=== PATIENT | male | born 1940 | race Caucasian/White ===

== ENCOUNTER 2016-12-21 06:09 | Observation (INO) | payer MEDICARE, OTHER ==
[~2016-12-21] VITALS: Ht 167.6 cm; Wt 92.2 kg
[2016-12-21] VITALS (7 sets, daily range): BP systolic 127–167; BP diastolic 66–79; PULSE 63–89; RESP 19–20; TEMP 98.6; Ht 167.6 cm; Wt 92.2 kg
[~2016-12-21 06:09] MED LIST: ACET500T98 PO; AMLO-147 PO; ASPI-664 PO; CARV6.25 PO; CLON-379 PO; DOCU-159 PO; FERR-55 PO; GABA300C16 PO; GEMF600T60 PO; HYDR10TA36 PO; LEVO75TA5 PO; LORA10TA3 PO; ORPH100T PO; SODI650T PO
[2016-12-21] MEDS ORDERED: ASPIRIN 81 MG TAB PO STA (06:41)
[2016-12-21] MEDS ORDERED: NITROGLYCERIN 2% 1 GM OINT PKT TD STA (06:41)
[2016-12-21] MEDS ORDERED: NITROGLYCERIN (SL) 0.4 MG TAB SL PRN ×2 (07:00→08:30)
[2016-12-21 07:38] LABS: BASOPHILS % 0.3 % (0.0-2.0); EOSINOPHILS # 0.1 10^3/ul (0.0-0.5); HEMATOCRIT 42.5 % (42.0-52.0); HEMOGLOBIN 14.2 g/dl (14.0-18.0); LYMPHOCYTES # 1.3 10^3/ul (0.8-2.9); LYMPHOCYTES % 21.7 % (15.0-51.0); MEAN CORPUSCULAR HEMOGLOBIN 28.4 pg (29.0-33.0); MEAN CORPUSCULAR HGB CONC 33.4 g/dl (32.0-37.0); MEAN CORPUSCULAR VOLUME 85.2 fl (82.0-101.0); MEAN PLATELET VOLUME 8.8 fl (7.4-10.4); MONOCYTE # 0.4 10^3/ul (0.3-0.9); MONOCYTES % 6.1 % (0.0-11.0); NEUTROPHIL # 4.1 10^3/ul (1.6-7.5); NEUTROPHILS % 69.9 % (39.0-77.0); PLATELET COUNT 126 10^3/UL (140-440); RED BLOOD COUNT 4.98 10^6/ul (4.70-6.10); RED CELL DISTRIBUTION WIDTH 15.5 % (11.5-14.5); UNCORRECTED WBC 5.9 10^3/ul (4.8-10.8); WHITE BLOOD COUNT 5.9 10^3/ul (4.8-10.8)
[2016-12-21 07:40] LABS: INR 1.01; PROTIME 13.3 Sec (12.2-14.2)
[2016-12-21 07:41] LABS: PARTIAL THROMBOPLASTIN TIME 29.5 Sec (25.0-35.0)
[2016-12-21 07:42] LABS: CONDITION 1; LH ANALYZER COMMENTS 1
[2016-12-21 07:50] LABS: CREATININE 4.21 mg/dl (0.61-1.24)
[2016-12-21 07:51] LABS: CALCIUM 9.3 mg/dl (8.4-10.2)
[2016-12-21 08:00] LABS: TROPONIN-I 0.028 ng/ml (0.00-0.12)
--- NOTE | 2016-12-21 08:20 | RADRPT ---
PROCEDURE: XR Chest. CLINICAL INDICATION: Chest pain TECHNIQUE: Single frontal chest x-ray. COMPARISON: 09/05/2015 FINDINGS: No acute infiltrate, pleural effusion or pneumothorax is identified. There is stable mild cardiomeg cassy. Aortic atherosclerotic calcification is noted. The osseous structures are remarkable for dege nerative spondylosis of the spine. IMPRESSION: 1. Stable mild cardiomegaly and aortic atherosclerosis. 2. No evidence of acute cardiopulmonary process. RPTAT: QQ .Kolby Dang MD, Date Time Electronically viewed and signed by .Kolby Dang MD, on 12/21/2016 08:20 .R/
[2016-12-21] MEDS ORDERED: DOCUSATE SODIUM 100 MG CAP PO PRN (08:30)
[2016-12-21] MEDS ORDERED: ACETAMINOPHEN 325 MG TAB PO PRN ×2 (08:30)
[2016-12-21] MEDS ORDERED: morphine 2 MG INJ IV PRN (08:30)
[2016-12-21] MEDS ORDERED: LORAZEPAM 2 MG INJ IV PRN (08:30)
[2016-12-21] MEDS ORDERED: NACL 0.9% 3 ML SYG IV SCH (08:30)
[2016-12-21] MEDS ORDERED: ONDANSETRON 4 MG INJ IV PRN ×2 (08:30)
--- NOTE | 2016-12-21 09:18 | ERA ---
ER Documentation Chief Complaint Date/Time DATE: 12/21/16 TIME: 09:14 Chief Complaint palpitation HPI Patient is a 76-year-old male with CAD and hypertension who presents with chest pain. He started with chest pain last night. The pain radiates into his back. It was worse in the back that started in his chest. He has had chest pain in the past. He denies shortness of breath. He says the pain is gone as of now. He said the back pain is still present. He has had no treatment as of yet. Upon review of old medical records this is the patient's third visit to the ER since 2014. ROS All systems reviewed and are negative except as per history of present illness. Medications Home Meds Active Scripts Acetaminophen (Tylenol) 500 Mg Tab, 500 MG PO Q6, #20 TAB Prov:DANIEL NEWBERRY PA-C 06/22/16 Orphenadrine Citrate (Norflex) 100 Mg Tablet.sa, 100 MG PO BID for 3 Days, TAB.SA Prov:DANIEL NEWBERRY PA-C 06/22/16 Clonidine Hcl* (Clonidine Hcl*) 0.1 Mg Tab, 0.1 MG PO Q4H Y for sbp>160, #40 TAB Prov:ARLENE SOLORIO 09/09/15 Hydralazine Hcl* (Apresoline*) 10 Mg Tab, 10 MG PO Q8 for 30 Days, TAB Prov:ARLENE SOLORIO 09/09/15 Sodium Bicarbonate* (Sodium Bicarbonate*) 650 Mg Tablet, 650 MG PO BID, #60 TAB Prov:AILIN GHOSH MD 09/09/15 Reported Medications Gemfibrozil* (Gemfibrozil*) 600 Mg Tablet, 600 MG PO QPM, TAB 09/05/15 Ferrous Sulfate* (Ferrous Sulfate*) 325 Mg Tablet, 325 MG PO DAILY, TAB 09/05/15 Docusate Sodium* (Docusate Sodium*) 100 Mg Capsule, 100 MG PO DAILY, CAP 09/05/15 Levothyroxine Sodium* (Levothyroxine Sodium*) 75 Mcg Tablet, 75 MCG PO AC BREAKFAST, TAB 09/05/15 Amlodipine Besylate* (Amlodipine Besylate*) 10 Mg Tablet, 10 MG PO DAILY, TAB 09/05/15 Carvedilol* (Coreg*) 6.25 Mg Tablet, 6.25 MG PO DAILY, TAB 09/05/15 Gabapentin* (Gabapentin*) 300 Mg Capsule, 300 MG PO BID, CAP 09/05/15 Aspirin* (Aspirin* EC) 81 Mg Tablet.dr, 81 MG PO DAILY, TAB 09/05/15 Loratadine* (Loratadine*) 10 Mg Tablet, 10 MG PO DAILY, TAB 09/05/15 Allergies Allergies: Coded Allergies: No Known Allergy (Unverified , 09/05/15) PMhx/Soc History of Surgery: No Anesthesia Reaction: No Hx Neurological Disorder: No Hx Respiratory Disorders: No Hx Cardiac Disorders: Yes (HTN; high cholesterol) Hx Psychiatric Problems: Yes (anxiety, depression) Hx Miscellaneous Medical Probl: Yes (thyroid disease) Hx Alcohol Use: No Hx Substance Use: No Hx Tobacco Use: No Smoking Status: Former smoker FmHx Family History: coronary disease Physical Exam Vitals Vital Signs Date Time Temp Pulse Resp B/P Pulse Ox O2 Delivery O2 Flow Rate FiO2 12/21/16 07:19 76 18 167/81 97 Room Air 12/21/16 06:23 97.3 74 20 189/84 96 Physical Exam Const: No acute distress Head: Atraumatic Eyes: Normal Conjunctiva ENT: Normal External Ears, Nose and Mouth. Neck: Full range of motion..~ No meningismus. Resp: Clear to auscultation bilaterally Cardio: Regular rate and rhythm, no murmurs Abd: Soft, non tender, non distended. Normal bowel sounds Skin: No petechiae or rashes Back: No midline or flank tenderness Ext: No cyanosis, or edema Neur: Awake and alert Psych: Normal Mood and Affect Result Diagram: 12/21/16 0700 12/21/16 0700 Results 24 hrs Laboratory Tests Test 12/21/16 07:00 Activated Partial Thromboplast Time 29.5Sec Anion Gap 22 Basophils # 0.010^3/ul Basophils % 0.3% Blood Morphology Comment Blood Urea Nitrogen 55mg/dl Calcium Level 9.3mg/dl Carbon Dioxide Level 26mmol/L Chloride Level 102mmol/L Creatinine 4.21mg/dl Eosinophils # 0.110^3/ul Eosinophils % 2.0% Glucose Level 116mg/dl Hematocrit 42.5% Hemoglobin 14.2g/dl INR International Normalized Ratio 1.01 Lymphocytes # 1.310^3/ul Lymphocytes % 21.7% Mean Corpuscular Hemoglobin 28.4pg Mean Corpuscular Hemoglobin Concent 33.4g/dl Mean Corpuscular Volume 85.2fl Mean Platelet Volume 8.8fl Monocytes # 0.410^3/ul Monocytes % 6.1% Neutrophils # 4.110^3/ul Neutrophils % 69.9% Nucleated Red Blood Cells # 0.010^3/ul Nucleated Red Blood Cells % 0.0/100WBC Platelet Count 84963^3/UL Potassium Level 4.0mmol/L Prothrombin Time 13.3Sec Prothrombin Time Ratio 1.0 Red Blood Count 4.9810^6/ul Red Cell Distribution Width 15.5% Sodium Level 146mmol/L Troponin I 0.028ng/ml White Blood Count 5.910^3/ul Current Medications Medications (Trade) Dose Ordered Sig/Jesús Route PRN Reason Start Time Stop Time Status Last Admin Dose Admin Aspirin (Aspirin) 162 mg ONCE STAT PO 12/21/16 06:41 12/21/16 06:42 DC 12/21/16 07:07 Nitroglycerin (Nitroglycerin 2% Oint) 1 inch ONCE STAT TD 12/21/16 06:41 12/21/16 06:42 DC 12/21/16 07:10 Nitroglycerin (Nitroglycerin (Sl Tab) 0.4 Mg) 1 tab Q5M UP TO 3 DOSES PRN SL CHEST PAIN 12/21/16 07:00 Ondansetron HCl (Zofran Inj) 4 mg ER BRIDGE PRN IV NAUSEA AND/OR VOMITING 12/21/16 08:30 12/22/16 08:29 Acetaminophen (Tylenol Tab) 650 mg ER BRIDGE PRN PO MILD PAIN/FEVER 12/21/16 08:30 12/22/16 08:29 IV Flush (NS 3 ml) 3 ml PER PROTOCOL IV 12/21/16 08:30 UNV Lorazepam (Ativan) 0.5 mg Q6H PRN IV ANXIETY 12/21/16 08:30 UNV Ondansetron HCl (Zofran Inj) 4 mg Q6H PRN IV NAUSEA AND/OR VOMITING 12/21/16 08:30 UNV Nitroglycerin (Nitroglycerin (Sl Tab) 0.4 Mg) 1 tab Q5M PRN SL CHEST PAIN 12/21/16 08:30 UNV Acetaminophen (Tylenol Tab) 650 mg Q6H PRN PO PAIN LEVEL 1-3 OR FEVER 12/21/16 08:30 UNV Morphine Sulfate (morphine) 2 mg Q4H PRN IV PAIN LEVEL 7-10 12/21/16 08:30 UNV Docusate Sodium (Colace) 100 mg Q12H PRN PO CONSTIPATION 12/21/16 08:30 UNV Famotidine (Pepcid) 20 mg Q12 PO 12/21/16 09:00 UNV Heparin Sodium (Porcine) (Heparin (5000 Units/0.5 ml)) 5,000 unit Q12 SC 12/21/16 09:00 UNV Insulin Aspart (Novolog Insulin Pen) NOVOLOG *MILD* ALGORITHM WITH MEALS BEDTIME SC 12/21/16 12:00 UNV Miscellaneous Information (* Miscellaneous Pharmacy Order) HYPOGLYCEMIA PROTOCOL w... ONCE ONCE XX 12/21/16 08:30 12/21/16 08:31 UNV Miscellaneous Information (* Miscellaneous Pharmacy Order) Discontinue Glyburide, Glipizide,... ONCE ONCE XX 12/21/16 08:30 12/21/16 08:31 UNV Miscellaneous Information (* Miscellaneous Pharmacy Order) Discontinue all previ... ONCE ONCE XX 12/21/16 08:30 12/21/16 08:31 UNV Amlodipine Besylate (Norvasc) 10 mg DAILY PO 12/21/16 09:00 UNV Aspirin (Halfprin) 81 mg DAILY PO 12/21/16 09:00 UNV Carvedilol (Coreg) 6.25 mg DAILY PO 12/21/16 09:00 UNV Clonidine (Catapres) 0.1 mg Q4H PRN PO sbp>160 12/21/16 08:30 UNV Docusate Sodium (Colace) 100 mg DAILY PO 12/21/16 09:00 UNV Ferrous Sulfate (Ferrous Sulfate (Ec)) 325 mg DAILY PO 12/21/16 09:00 UNV Gabapentin (Neurontin) 300 mg BID PO 12/21/16 09:00 UNV Hydralazine HCl (Apresoline) 10 mg Q8 PO 12/21/16 14:00 UNV Levothyroxine Sodium (Synthroid) 75 mcg AC BREAKFAST PO 12/22/16 07:00 UNV Loratadine (Claritin) 10 mg DAILY PO 12/21/16 09:00 UNV Sodium Bicarbonate (Sodium Bicarbonate Tab) 650 mg BID PO 12/21/16 09:00 UNV Procedures/MDM EKG read by me: Rate/Rhythm: Sinus rhythm at a rate of 73 Intervals: Normal Impression: Sinus rhythm with Q waves PROCEDURE: XR Chest. CLINICAL INDICATION: Chest pain TECHNIQUE: Single frontal chest x-ray. COMPARISON: 09/05/2015 FINDINGS: No acute infiltrate, pleural effusion or pneumothorax is identified. There is stable mild cardiomegaly. Aortic atherosclerotic calcification is noted. The osseous structures are remarkable for degenerative spondylosis of the spine. IMPRESSION: 1. Stable mild cardiomegaly and aortic atherosclerosis. 2. No evidence of acute cardiopulmonary process. RPTAT: QQ .Kolby Dang MD, MD Date Time Electronically viewed and signed by .Kolby Dang MD, MD on 12/21/2016 08: 20 Patient is a 76-year-old male with cardiac disease who presents with chest pain. He was given aspirin and nitroglycerin. EKG shows Q waves at this time. The patient has a second EKG pending. I am concerned for possible acute coronary syndrome. At this point I doubt pneumonia, pneumothorax, pulmonary embolism, or aortic dissection. The patient understands the plan and will be admitted to a telemetry bed. I spoke with Dr. Delgado from the panel team for admission as the patient's primary doctor does not admit to the hospital and he has Medicare insurance. Departure Diagnosis: Primary Impression: Chest pain Qualified Code: R07.9 - Chest pain, unspecified type Additional Impression: Palpitations Condition: EMILY Ma MD Dec 21, 2016 09:18
[2016-12-21 10:22] LABS: MAGNESIUM 1.7 mg/dl (1.7-2.5)
[2016-12-21 10:23] LABS: CHOL/HDL RATIO 4.3 RATIO
[2016-12-21 10:31] LABS: CK-MB 1.43 ng/ml (0.0-2.4)
[2016-12-21 10:32] LABS: ADD UMIC YES; URINE BILIRUBIN (Dip) NEGATIVE (NEGATIVE); URINE BLOOD (Dip) 1+ (NEGATIVE); URINE COLOR LT. YELLOW (YELLOW); URINE GLUCOSE (Dip) NEGATIVE (NEGATIVE); URINE KETONES (Dip) NEGATIVE (NEGATIVE); URINE LEUKOCYTE ESTERASE (Dip) NEGATIVE (NEGATIVE); URINE NITRITE (Dip) NEGATIVE (NEGATIVE); URINE TOTAL PROTEIN (Dip) 2+ (NEGATIVE); URINE UROBILINOGEN (Dip) 0.2 E.U./dL (0.1-1.0)
[2016-12-21 10:34] LABS: TROPONIN-I 0.032 ng/ml (0.00-0.12)
--- NOTE | 2016-12-21 10:47 | RADRPT ---
PROCEDURE: Retroperitoneal US. CLINICAL INDICATION: Renal insufficiency TECHNIQUE: Multiple sonographic images of the kidneys and retroperitoneum were obtained. The imag es were reviewed on a PACS workstation. COMPARISON: 09/05/15 FINDINGS: The kidneys are normal in size, contour, cortical thickness and cortical echogenicity. The right kidney measures 9.9 cm. The left kidney measures 10 cm. No kidney stones are visualized. There is no evidence for hydronephrosis. The urinary bladder is normal. RPTAT: AA IMPRESSION: Unremarkable retroperitoneal ultrasound. .Jose Antonio Alcazar MD, MD Date Time Electronically viewed and signed by .Jose Antonio Alcazar MD, MD on 12/21/2016 10:46 .S/
[2016-12-21 10:49] LABS: URINE RBCS 0-2 /HPF (0)
[2016-12-21 10:54] LABS: THYROID STIMULATING HORMONE 4.74 MIU/L (0.465-4.680)
[2016-12-21] MEDS ORDERED: hydrALAzine 20 MG INJ IV PRN (11:00)
[2016-12-21] MEDS ORDERED: AMLODIPINE 10 MG TAB PO SCH (11:00)
[2016-12-21] MEDS ORDERED: GLUCAGON 1 MG INJ IM PRN (11:00)
[2016-12-21] MEDS ORDERED: DEXTROSE 50% 50 ML SYRINGE IV PRN ×2 (11:00)
[2016-12-21] MEDS ORDERED: GLUCOSE GEL 15 GRAM TUBE PO PRN ×2 (11:00)
[2016-12-21] MEDS ORDERED: GLUCOSE GEL 15 GRAM TUBE BUCCAL PRN (11:00)
--- NOTE | 2016-12-21 11:52 | HP ---
DATE OF ADMISSION: 12/21/2016 TIME OF EVALUATION: 10:30 a.m. REASON FOR ADMISSION: Chest pain. CONSULTATIONS: 1. Dr. Neno English, Nephrology. 2. Dr. Juan Manuel Babcock, Cardiology. HISTORY OF PRESENT ILLNESS: This is a 76-year-old male with past medical history of essential hypertension, hyperlipidemia, CAD, chronic kidney disease stage IV and hypothyroidism who came to the emergency room with chief complaint of chest pain. The patient verbalized that the pain started last night. The patient verbalized the chest pain as substernal with radiation to the back. The patient denied any associated nausea, vomiting or diaphoresis. The patient denied any dyspnea. The patient was complaining of some headache. The patient denied any dizziness. The patient verbalized that he has been compliant with all his home medications. In the emergency room, the patient's initial set of troponins were negative. The patient's 12-lead EKG showed normal sinus rhythm with premature atrial complexes. The patient was noted to have elevated blood pressure with an initial blood pressure of 189/84 in the emergency room. The patient was treated with aspirin and nitroglycerin in the emergency room. PAST MEDICAL HISTORY: Essential hypertension, hyperlipidemia, CAD, chronic kidney disease stage IV, hypothyroidism. PAST SURGICAL HISTORY: Left heart catheterization. HOME MEDICATIONS: 1. Ferrous sulfate 325 mg p.o. daily. 2. Amlodipine 10 mg p.o. daily. 3. Coreg 6.25 mg p.o. daily. 4. Gemfibrozil 600 mg p.o. q.p.m. 5. Apresoline 10 mg p.o. q.8 h. 6. Aspirin 81 mg p.o. daily. 7. Gabapentin 300 mg p.o. b.i.d. 6. Synthroid 75 mcg p.o. before breakfast. ALLERGIES: NO KNOWN DRUG ALLERGIES. SOCIAL HISTORY: The patient lives at home. No recent history of tobacco, alcohol or illicit drug use. REVIEW OF SYSTEMS: A 12-point review of systems were negative other than what is mentioned in history of present illness. PHYSICAL EXAMINATION: VITAL SIGNS: Temperature 97.3, pulse rate 76, respiratory rate 18, blood pressure 167/81, oxygen saturation 97% on room air. GENERAL: This is an obese male lying in bed in no apparent distress. HEENT: Head normocephalic and atraumatic. Eyes: Anicteric sclerae. Conjunctivae clear. ENT: Nasal septum is midline. Oral mucosa is dry. NECK: Supple. No JVD noticed. RESPIRATORY: Bilaterally clear to auscultation. No adventitious breath sounds heard. No use of accessory muscles of respiration. CARDIAC: Regular rate and rhythm. No obvious murmurs heard. ABDOMEN: Distended, soft. Bowel sounds hypoactive in all 4 quadrants. GENITOURINARY: Deferred. EXTREMITIES: No cyanosis, no clubbing. Bilateral lower extremity 1+ pitting pedal edema. Peripheral pulses palpable. NEUROLOGIC: The patient is awake, alert and oriented. Cranial nerves are grossly intact. LABORATORY AND DIAGNOSTIC DATA: WBC 5.9, hemoglobin 14.0, hematocrit 42.5, platelet count 126. Sodium 146, potassium 4.0, chloride 102, carbon dioxide 26 , anion gap 22, BUN 55, creatinine 4.21, glucose 116, calcium 9.3. Creatinine kinase 274, troponin I 0.032, triglycerides 177, total cholesterol 171, LDL 97, HDL 39. Urinalysis: Urine nitrite negative, urine leukocyte esterase negative, urine total protein 2+. IMAGING: Chest x-ray: Stable mild cardiomegaly and aortic atherosclerosis. No evidence of acute cardiopulmonary process. Renal ultrasound: Unremarkable retroperitoneal ultrasound. 12-lead EKG: Sinus rhythm with premature atrial complexes. IMPRESSION: This is a 76-year-old male with multiple comorbidities who came to the emergency room with chief complaint of chest pain, who presented here for further treatment and evaluation. ASSESSMENT AND PLAN: 1. Chest pain. Total rule out acute coronary syndrome. The patient has multiple comorbidities including chronic kidney disease, essential hypertension , dyslipidemia and borderline diabetes. The patient also has a prior history of coronary artery disease. The patient will be continued on aspirin. Serial troponins will be obtained to evaluate for any underlying acute coronary syndrome. A 2D echocardiogram will be obtained to evaluate the left ventricular ejection fraction. A cardiology consult will be obtained. 2. Accelerated hypertension. The patient's home antihypertensives will be resumed. The patient will also be started on p.r.n. antihypertensives for any systolic blood pressure readings greater than 160 mmHg. 3. Chronic kidney disease. The patient has history of stage IV chronic kidney disease. Nephrology consult was obtained. Nephrotoxic drugs will be used with caution. 4. Dyslipidemia. A fasting lipid panel will be obtained. A low cholesterol diet will be reinforced. 5. Hypothyroidism. The patient's Synthroid will be resumed. A thyroid function study will be obtained. Plan. The patient will be admitted to inpatient telemetry floor. The patient will be started on a renal diet. The patient will be started on DVT prophylaxis and gastrointestinal prophylaxis. The patient will remain a FULL CODE. Activities will be as tolerated. The rest of the patient's management will be based on the clinical course, the results of diagnostic studies, and inputs from consultants. Based on the patient's clinical presentation, he most probably requires at least 1 midnight's stay for further management and evaluation of his clinical presentation. The case and management of this patient was fully discussed with Dr. Mcmanus. Approximately 50 minutes was spent on the history and physical on this patient. DARYL MCMANUS MD, AM/MARIAELENA Conf#: [id number] DID#: [id number] MTDD
[2016-12-21] MEDS: INSULIN ASPART [NOVOLOG] 3 ML PEN SC SCH ×3 (12:00→20:38)
[2016-12-21] MEDS: FAMOTIDINE 20 MG TAB PO SCH (13:05)
[2016-12-21] MEDS: FERROUS SULFATE (EC) 325 MG TAB PO SCH (13:05)
[2016-12-21] MEDS: DOCUSATE SODIUM 100 MG CAP PO SCH (13:05)
[2016-12-21] MEDS: GABAPENTIN 300 MG CAP PO SCH ×2 (13:06→20:39)
[2016-12-21] MEDS: ASPIRIN (EC) 81 MG TAB PO SCH (13:06)
[2016-12-21] MEDS: HEPARIN 5,000 UNIT/0.5 ML SYG SC SCH ×2 (13:07→20:50)
[2016-12-21] MEDS: NA BICARBONATE 650 MG TAB PO SCH ×2 (14:15→20:39)
--- NOTE | 2016-12-21 14:27 | QN ---
Documentation Comment [id number] Morel MD Dec 21, 2016 14:27
[2016-12-21 14:34] LABS: CK-MB 1.62 ng/ml (0.0-2.4)
[2016-12-21 14:35] LABS: TROPONIN-I 0.025 ng/ml (0.00-0.12)
--- NOTE | 2016-12-21 15:12 | CONS ---
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 The patient was initially assigned to Dr. 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 The patient's care was taken over for nephrology by me and discussed with Dr. Lockett. The patient has a history of chronic kidney disease IV and V. Th e patient also has history of hypertension, neuropathy, CAD. The patient has history of edema, anas arca, resolving. The patient's other history includes history of hypothyroidism, dyslipidemia. He presented to this hospital complaining of chest pain and is being admitted for further management. PAST MEDICAL HISTORY: As mentioned above. Briefly, CKD V, hypertension, dyslipidemia, hypothyroidi sm. ALLERGY HISTORY: NEGATIVE. FAMILY HISTORY: Positive for diabetes, hypertension, ESRD. SOCIAL HISTORY: Negative. MEDICATION HISTORY: Patient at home is on: 1. Tylenol. 2. Amlodipine. 3. Aspirin. 4. Coreg. 5. Clonidine. 6. Docusate sodium. 7. Iron sulfate. 8. Gabapentin. 9. Lopid. 10. Hydralazine. 11. Levothyroxine. 12. Loratadine. 13. Norflex. 14. Sodium bicarbonate. REVIEW OF SYSTEMS: HEENT: Unremarkable. RESPIRATORY: Unremarkable. CARDIOVASCULAR: Unremarkable. ABDOMEN: Unremarkable. EXTREMITIES: On and off swelling. CENTRAL NERVOUS SYSTEM: Unremarkable. PHYSICAL EXAMINATION: GENERAL: The patient is awake and alert. VITAL SIGNS: Pulse 74, blood pressure 136/77. HEAD: Atraumatic and normocephalic. Pupils are equal, reactive to light. NECK: Supple. EXTREMITIES: The patient has a trace edema. CENTRAL NERVOUS SYSTEM: The patient is awake, alert, no focal deficit. LABORATORY DATA: Shows hematocrit 42.5. Sodium 146, potassium 4.0, BUN 55, creatinine 4.21. Patie nt had ultrasound of the kidney done shows unremarkable retroperitoneal ultrasound. The patient has stable mild cardiomegaly and aortic atherosclerosis. IMPRESSION: 1. 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 2. Patient has history of chronic tubular interstitial nephritis also. 3. Patient has hypertension, history of anemia, stable now. The patient has history of proteinuria , history of dyslipidemia, history of coronary artery disease. Plan at this point is to continue to follow patient's electrolytes. MEDICATIONS: Currently the patient is on: 1. Levothyroxine. 2. Hydralazine. 3. Insulin 4. Pepcid. 5. Amlodipine. 6. Aspirin. 7. Coreg. 8. Docusate sodium. 9. Iron sulfate. 10. Gabapentin. 11. Loratadine. 12. Sodium bicarbonate. I agree with current treatment. We will try to avoid nephrotoxic drugs whenever possible. We will also try to avoid contrast study. Patient has complete workup done for his kidney as an outpatient which will not be repeated. Only urinalysis will be sent . Thank you, Dr. Lockett, Dr. Delgado and ____ for kindly asking me to see this patient in nephrolo gy consultation. Dictated By: KATHIA ZHANG MD BS/NTS Conf#: [id number] DID#: [id number]
--- NOTE | 2016-12-21 15:36 | RADRPT ---
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 Physician: ANTHONY MCMANUS Quality: Adequate Procedures: Transthoracic echocardiogram with complete 2D, M-Mode, and doppler examination. Indications: Chest Pain. 2D/M Mode Doppler Measurement Value Normal Ranges Measurement Value Normal Ranges LVIDd 2D 6.2 3.5 - 5.6 cm AV Peak Armani 1.7 m/sec LVIDs 2D 2.7 2.1 - 4.1 cm AV Peak PG 10.9 mmHg LVPWd 2D 1.0 0.6 - 1.1 cm AI Peak PG 57.8 mmHg IVSd 2D 1.1 0.6 - 1.1 cm AI Peak Armani 3.8 m/sec AoR Diam 2D 3.3 2.0 - 3.7 cm AI PHT 492.1 msec EDV 2D 194.1 cm3 LVOT Peak Armani 1.1 m/sec ESV 2D 19.4 cm3 LVOT Peak PG 5.1 mmHg LA Dimen 2D 3.2 2.3 - 4.0 cm MV E Peak Armani 0.4 m/sec MV A Peak Armani 0.5 m/sec MV E/A 0.7 MV Decel Time 250 msec MV Decel [place] 1 MV E/A 0.7 TR Peak Armani 2.0 m/sec TR Peak PG 15.7 mmHg RVSP 19.0 mmHg Findings Left Ventricle: Normal left ventricular systolic function. Mild concentric left ventricular hypertrophy. Mild enlargement of left ventricle cavity. Ejection fraction is visually estimated at 65 %. Tissue Doppler/Mitral Doppler indices are consistent with impaired relaxation (Stage I diastolic dysfunction). Right Ventricle: Normal right ventricular size. Normal right ventricular systolic function. Left Atrium: The left atrium is normal in size. Right Atrium: The right atrium is normal in size. Mitral Valve: Normal appearance and function of the mitral valve with trace physiologic regurgitation. Aortic Valve: No hemodynamically significant aortic stenosis by doppler. Aortic cusps appear mildly calcified. Trace aortic valve regurgitation. Tricuspid Valve: Normal appearance of the tricuspid valve. Estimated peak PA systolic pressure 19 mmHg. There is trace tricuspid regurgitation. Pericardium: Normal pericardium with no significant pericardial effusion. Aorta: Normal aortic root. IVC: Normal size and normal respiratory collapse consistent with normal right atrial pressure. Conclusions 1.Normal left ventricular systolic function. Mild concentric left ventricular hypertrophy. Mild enlargement of left ventricle cavity. Ejection fraction is visually estimated at 65 %. Tissue Doppler/Mitral Doppler indices are consistent with impaired relaxation (Stage I diastolic dysfunction). 2.Normal right ventricular size. Normal right ventricular systolic function. 3.The left atrium is normal in size. 4.The right atrium is normal in size. 5.No significant valvular stenosis or regurgitation seen. 6.Normal pericardium with no significant pericardial effusion. Electronically Signed By: Juan Manuel Babcock 21-Dec-2016 15:35:21 -0800 Patient Name: SAGE JASSO Study Date: 21-Dec-2016 [id number]
[2016-12-21 15:43] LABS: TROPONIN-I 0.023 ng/ml (0.00-0.12)
[2016-12-21 15:47] LABS: CK-MB 1.35 ng/ml (0.0-2.4)
--- NOTE | 2016-12-21 16:36 | CONS ---
Date/Time of Note Date/Time of Note DATE: 12/21/16 TIME: 16:26 Assessment/Plan Assessment/Plan Additional Assessment/Plan Chest pain Preserved ejection fraction Coronary artery disease Left ventricular hypertrophy Chronic kidney disease Hypertension -Patient presents with uncontrolled hypertension and chest pain. Chest pain is sharp in nature. Patient with baseline significantly abnormal renal function. Troponins are borderline minimally elevated but have remained static. His symptoms have since resolved. Blood pressure has improved. I did have an extensive discussion with the patient regarding his renal disease. Patient is adamant that he does not want to go on hemodialysis and will not undergo any procedures if this could lead to possible hemodialysis risk. Proceeding with further cardiac workup including nuclear perfusion cardiac study would not be appropriate at the current time since if the results are "positive" patient would not consider coronary angiogram. We will pursue aggressive medical management. Continue aspirin, statin and beta-[place]. Would start imdur in addition. If needed, could decrease dose of other antihypertensive medications for "blood pressure room" for long-acting nitroglycerin. Consultation Date/Type/Reason Admit Date/Time Dec 21, 2016 at 08:14 Type of Consultation: cv Reason for Consultation Chest pain Hx of Present Illness This is a 76-year-old male with history of coronary artery disease, chronic kidney disease, hypertension who presents with chest pain. Symptoms began last night around 8 PM. Patient was sitting on the couch and watching television and developed sharp left sided chest pain. There was no associated shortness of breath, nausea, vomiting. No diaphoresis or abdominal pain. Symptoms worsen throughout the night and he came to the emergency room for further evaluation and care. He currently denies any chest pain, shortness of breath or palpitations. He denies exertional chest pain, shortness of breath or dizziness. He does have a history of coronary artery disease and did have an angiogram in 2005 and asked for him two arteries were fixed. 12 point review of systems was performed with all pertinent positives and negatives mentioned above and all else is negative Past Medical History Medical History: coronary artery disease, hypertension, renal disease Past Surgical History Past Surgical Hx: angioplasty, other Family History Significant Family History: no pertinent family hx Social History Alcohol Use: sober Smoking Status: Former smoker Exam/Review of Systems Vital Signs Vitals Vital Signs Date Time Temp Pulse Resp B/P Pulse Ox O2 Delivery O2 Flow Rate FiO2 12/21/16 14:46 69 12/21/16 12:45 97.9 20 167/79 96 Room Air Exam No apparent distress Constitutional: alert, oriented, well developed Head: normocephalic Neck: supple Respiratory: clear to auscultation, normal air movement Cardiovascular: other (S1-S2 heard), regular rate and rhythm Gastrointestinal: bowel sounds, non-tender, other (No guarding), soft Extremities: edema (Trace) Results Result Diagram: 12/21/16 0700 12/21/16 0700 Results 24 hrs Laboratory Tests Test 12/21/16 07:00 12/21/16 10:00 12/21/16 12:24 12/21/16 13:22 Activated Partial Thromboplast Time 29.5 Anion Gap 22 H Basophils # 0.0 Basophils % 0.3 Blood Morphology Comment Blood Urea Nitrogen 55 H Calcium Level 9.3 Carbon Dioxide Level 26 Chloride Level 102 Cholesterol Level 171 Cholesterol/HDL Ratio 4.3 Creatine Kinase 274 H 234 H Creatine Kinase Index 0.5 0.7 Creatinine 4.21 H Creatinine Kinase MB (Mass) 1.43 1.62 Eosinophils # 0.1 Eosinophils % 2.0 Free Thyroxine 1.01 Glucose Level 116 HDL Cholesterol 39 Hematocrit 42.5 # Hemoglobin 14.2 # INR International Normalized Ratio 1.01 LDL Cholesterol, Calculated 97 Lymphocytes # 1.3 Lymphocytes % 21.7 Magnesium Level 1.7 Mean Corpuscular Hemoglobin 28.4 L Mean Corpuscular Hemoglobin Concent 33.4 Mean Corpuscular Volume 85.2 Mean Platelet Volume 8.8 Monocytes # 0.4 Monocytes % 6.1 Neutrophils # 4.1 Neutrophils % 69.9 Nucleated Red Blood Cells # 0.0 Nucleated Red Blood Cells % 0.0 Platelet Count 126 L Potassium Level 4.0 Prothrombin Time 13.3 Prothrombin Time Ratio 1.0 Red Blood Count 4.98 # Red Cell Distribution Width 15.5 H Sodium Level 146 H Thyroid Stimulating Hormone (TSH) 4.740 H Triglycerides Level 177 H Troponin I 0.032 0.025 Uric Acid 7.8 White Blood Count 5.9 Urine Bilirubin NEGATIVE Urine Clarity CLEAR Urine Color LT. YELLOW Urine Eosinophils % 0.0 Urine Glucose NEGATIVE Urine Hemoglobin 1+ H Urine Ketones NEGATIVE Urine Leukocyte Esterase NEGATIVE Urine Microscopic RBC 0-2 Urine Microscopic WBC NONE SEEN Urine Nitrite NEGATIVE Urine Specific [place] 1.015 Urine Total Protein 2+ H Urine Urobilinogen 0.2 E.U./dL Urine pH 6.0 Bedside Glucose 101 Test 12/21/16 14:35 Creatine Kinase Pending Creatine Kinase Index Pending Creatinine Kinase MB (Mass) 1.35 Troponin I 0.023 Medications Medications Current Medications Lorazepam (Ativan) 0.5 mg Q6H PRN IV ANXIETY; Start 12/21/16 at 08:30 Ondansetron HCl (Zofran Inj) 4 mg Q6H PRN IV NAUSEA AND/OR VOMITING; Start 12/21 at 08:30 Nitroglycerin (Nitroglycerin (Sl Tab) 0.4 Mg) 1 tab Q5M PRN SL CHEST PAIN; Start 12/21/16 at 08:30 Acetaminophen (Tylenol Tab) 650 mg Q6H PRN PO PAIN LEVEL 1-3 OR FEVER; Start at 08:30 Morphine Sulfate (morphine) 2 mg Q4H PRN IV PAIN LEVEL 7-10; Start 12/21/16 at 08:30 Docusate Sodium (Colace) 100 mg Q12H PRN PO CONSTIPATION; Start 12/21/16 at 08: 30 Famotidine (Pepcid) 20 mg DAILY PO Last administered on 12/21/16 13:05; Admin Dose 20 MG; Start 12/21/16 at 11:00 Heparin Sodium (Porcine) (Heparin (5000 Units/0.5 ml)) 5,000 unit Q12 SC Last administered on 12/21/16 13:07; Admin Dose 5,000 UNIT; Start 12/21/16 at 11:00 Amlodipine Besylate (Norvasc) 10 mg DAILY PO Last administered on 12/21/16 13: 06; Admin Dose 10 MG; Start 12/21/16 at 11:00 Aspirin (Halfprin) 81 mg DAILY PO Last administered on 12/21/16 13:06; Admin Dose 81 MG; Start 12/21/16 at 11:00 Carvedilol (Coreg) 6.25 mg DAILY PO Last administered on 12/21/16 13:06; Admin Dose 6.25 MG; Start 12/21/16 at 11:00 Clonidine (Catapres) 0.1 mg Q4H PRN PO sbp>160; Start 12/21/16 at 10:30 Docusate Sodium (Colace) 100 mg DAILY PO Last administered on 12/21/16 13:05; Admin Dose 100 MG; Start 12/21/16 at 11:00 Ferrous Sulfate (Ferrous Sulfate (Ec)) 325 mg DAILY PO Last administered on 12/21 13:05; Admin Dose 325 MG; Start 12/21/16 at 11:00 Gabapentin (Neurontin) 300 mg BID PO Last administered on 12/21/16 13:06; Admin Dose 300 MG; Start 12/21/16 at 11:00 Hydralazine HCl (Apresoline) 10 mg Q8 PO Last administered on 12/21/16 14:16; Admin Dose 10 MG; Start 12/21/16 at 14:00 Levothyroxine Sodium (Synthroid) 75 mcg DAILY@06 PO ; Start 12/22/16 at 06:00 Loratadine (Claritin) 10 mg DAILY PO ; Start 12/21/16 at 11:00 Sodium Bicarbonate (Sodium Bicarbonate Tab) 650 mg BID PO Last administered on 12/21/16 14:15; Admin Dose 650 MG; Start 12/21/16 at 11:00 Miscellaneous Information 1 ea NOTE XX ; Start 12/21/16 at 11:00 Glucose (Glutose) 15 gm Q15M PRN PO DECREASED GLUCOSE; Start 12/21/16 at 11:00 Glucose (Glutose) 22.5 gm Q15M PRN PO DECREASED GLUCOSE; Start 12/21/16 at 11:00 Dextrose (D50w Syringe) 25 ml Q15M PRN IV DECREASED GLUCOSE; Start 12/21/16 at 11:00 Dextrose (D50w Syringe) 50 ml Q15M PRN IV DECREASED GLUCOSE; Start 12/21/16 at 11:00 Glucagon (Glucagen) 1 mg Q15M PRN IM DECREASED GLUCOSE; Start 12/21/16 at 11:00 Glucose (Glutose) 15 gm Q15M PRN BUCCAL DECREASED GLUCOSE; Start 12/21/16 at 11: 00 Hydralazine HCl (Apresoline) 10 mg Q6H PRN IV SBP>160; Start 12/21/16 at 11:00 Procedures Procedures ECG demonstrates sinus rhythm at 73 bpm, left ventricular hypertrophy, inferior Q waves Juan Manuel Babcock DO Dec 21, 2016 16:35
[2016-12-21] MEDS: LORATADINE 10 MG TAB PO SCH (17:54)
[2016-12-21] MEDS: ISOSORBIDE MONONITRATE(SR)30 MG TAB PO SCH (17:55)
[2016-12-22] VITALS (8 sets, daily range): BP systolic 118–152; BP diastolic 62–76; PULSE 55–68; RESP 18–20
[2016-12-22] MEDS ORDERED: LEVOTHYROXINE 75 MCG TAB PO SCH (06:00)
[2016-12-22 07:33] LABS: ADD SCAN DIFF NO
[2016-12-22 07:44] LABS: BASOPHILS % 0.4 % (0.0-2.0); EOSINOPHILS # 0.2 10^3/ul (0.0-0.5); HEMATOCRIT 36.1 % (42.0-52.0); HEMOGLOBIN 11.7 g/dl (14.0-18.0); LYMPHOCYTES # 1.3 10^3/ul (0.8-2.9); LYMPHOCYTES % 23.3 % (15.0-51.0); MEAN CORPUSCULAR HEMOGLOBIN 28.3 pg (29.0-33.0); MEAN CORPUSCULAR HGB CONC 32.4 g/dl (32.0-37.0); MEAN CORPUSCULAR VOLUME 87.2 fl (82.0-101.0); MEAN PLATELET VOLUME 10.6 fl (7.4-10.4); MONOCYTE # 0.4 10^3/ul (0.3-0.9); MONOCYTES % 8.1 % (0.0-11.0); NEUTROPHIL # 3.5 10^3/ul (1.6-7.5); PLATELET COUNT 103 10^3/UL (140-415); RED BLOOD COUNT 4.14 10^6/ul (4.70-6.10); RED CELL DISTRIBUTION WIDTH 14.5 % (11.5-14.5); WHITE BLOOD COUNT 5.4 10^3/ul (4.8-10.8)
[2016-12-22] MEDS: INSULIN ASPART [NOVOLOG] 3 ML PEN SC SCH ×2 (07:53→12:00)
[2016-12-22 07:59] LABS: POTASSIUM 3.8 mmol/L (3.5-5.1)
[2016-12-22 08:02] LABS: CREATININE 3.74 mg/dl (0.61-1.24)
[2016-12-22 08:03] LABS: CALCIUM 8.8 mg/dl (8.4-10.2)
[2016-12-22 08:06] LABS: MAGNESIUM 1.6 mg/dl (1.7-2.5); PHOSPHORUS 5.2 mg/dl (2.5-4.9)
[2016-12-22] MEDS ORDERED: AMLODIPINE 5 MG TAB PO SCH (09:00)
[2016-12-22] MEDS: GABAPENTIN 300 MG CAP PO SCH (09:02)
[2016-12-22] MEDS: LORATADINE 10 MG TAB PO SCH (09:02)
[2016-12-22] MEDS: NA BICARBONATE 650 MG TAB PO SCH (09:02)
[2016-12-22] MEDS: DOCUSATE SODIUM 100 MG CAP PO SCH (09:03)
[2016-12-22] MEDS: ISOSORBIDE MONONITRATE(SR)30 MG TAB PO SCH (09:03)
[2016-12-22] MEDS: ASPIRIN (EC) 81 MG TAB PO SCH (09:03)
[2016-12-22] MEDS: FERROUS SULFATE (EC) 325 MG TAB PO SCH (09:03)
[2016-12-22] MEDS: FAMOTIDINE 20 MG TAB PO SCH (09:04)
[2016-12-22] MEDS: HEPARIN 5,000 UNIT/0.5 ML SYG SC SCH (09:05)
--- NOTE | 2016-12-22 11:12 | CONS ---
Date/Time of Note Date/Time of Note DATE: 12/22/16 TIME: 11:09 Assessment/Plan Assessment/Plan Additional Assessment/Plan Chest pain Preserved ejection fraction Coronary artery disease Left ventricular hypertrophy Chronic kidney disease Hypertension -Blood pressure trend has improved. Patient denies any chest pain or shortness of breath. Renal function improving. Please refer to my previous note dated 12/21/2016. Given patient currently asymptomatic and as mentioned in the previous note, no further inpatient cardiac workup needed at the current time. DC planning Consultation Date/Type/Reason Admit Date/Time Dec 21, 2016 at 08:14 Initial Consult Date Type of Consultation: cv 24 HR Interval Summary Free Text/Dictation Denies any further chest pain, shortness of breath or back pain. Patient states he was walking the hallways without any symptoms. Exam/Review of Systems Vital Signs Vitals Vital Signs Date Time Temp Pulse Resp B/P Pulse Ox O2 Delivery O2 Flow Rate FiO2 12/22/16 08:03 67 12/22/16 07:55 98.4 19 136/68 94 12/21/16 12:45 Room Air Intake and Output 12/21/16 12/21/16 12/22/16 15:00 23:00 07:00 Intake Total 750 ml 250 ml Output Total 350 ml 800 ml Balance 400 ml -550 ml Exam No apparent distress Constitutional: alert, oriented Head: normocephalic Neck: supple Respiratory: clear to auscultation, normal air movement Cardiovascular: other (S1-S2 heard), regular rate and rhythm Gastrointestinal: bowel sounds, non-tender, soft Extremities: edema (Trace) Results Result Diagram: 12/22/16 0640 12/22/16 0640 Results 24 hrs Laboratory Tests Test 12/21/16 12:24 12/21/16 13:22 12/21/16 14:35 12/21/16 17:22 Bedside Glucose 101 123 Creatine Kinase 234 H 226 H Creatine Kinase Index 0.7 0.6 Creatinine Kinase MB (Mass) 1.62 1.35 Troponin I 0.025 0.023 Test 12/21/16 20:37 12/22/16 06:40 12/22/16 07:32 Bedside Glucose 72 91 Anion Gap 19 H Basophils # 0.0 Basophils % 0.4 Blood Urea Nitrogen 53 H Calcium Level 8.8 Carbon Dioxide Level 26 Chloride Level 100 Creatinine 3.74 H Eosinophils # 0.2 Eosinophils % 3.0 Glucose Level 94 Hematocrit 36.1 L Hemoglobin 11.7 L Lymphocytes # 1.3 Lymphocytes % 23.3 Magnesium Level 1.6 L Mean Corpuscular Hemoglobin 28.3 L Mean Corpuscular Hemoglobin Concent 32.4 Mean Corpuscular Volume 87.2 Mean Platelet Volume 10.6 #H Monocytes # 0.4 Monocytes % 8.1 Neutrophils # 3.5 Neutrophils % 65.0 Nucleated Red Blood Cells # 0.0 Nucleated Red Blood Cells % 0.0 Phosphorus Level 5.2 H Platelet Count 103 L Potassium Level 3.8 Red Blood Count 4.14 L Red Cell Distribution Width 14.5 Sodium Level 141 White Blood Count 5.4 Medications Medications Current Medications Lorazepam (Ativan) 0.5 mg Q6H PRN IV ANXIETY; Start 12/21/16 at 08:30 Ondansetron HCl (Zofran Inj) 4 mg Q6H PRN IV NAUSEA AND/OR VOMITING; Start 12/21 at 08:30 Nitroglycerin (Nitroglycerin (Sl Tab) 0.4 Mg) 1 tab Q5M PRN SL CHEST PAIN; Start 12/21/16 at 08:30 Acetaminophen (Tylenol Tab) 650 mg Q6H PRN PO PAIN LEVEL 1-3 OR FEVER Last administered on 12/21/16 22:59; Admin Dose 650 MG; Start 12/21/16 at 08:30 Morphine Sulfate (morphine) 2 mg Q4H PRN IV PAIN LEVEL 7-10; Start 12/21/16 at 08:30 Docusate Sodium (Colace) 100 mg Q12H PRN PO CONSTIPATION; Start 12/21/16 at 08: 30 Famotidine (Pepcid) 20 mg DAILY PO Last administered on 12/22/16 09:04; Admin Dose 20 MG; Start 12/21/16 at 11:00 Heparin Sodium (Porcine) (Heparin (5000 Units/0.5 ml)) 5,000 unit Q12 SC Last administered on 12/22/16 09:05; Admin Dose 5,000 UNIT; Start 12/21/16 at 11:00 Aspirin (Halfprin) 81 mg DAILY PO Last administered on 12/22/16 09:03; Admin Dose 81 MG; Start 12/21/16 at 11:00 Carvedilol (Coreg) 6.25 mg DAILY PO Last administered on 12/22/16 09:04; Admin Dose 6.25 MG; Start 12/21/16 at 11:00 Clonidine (Catapres) 0.1 mg Q4H PRN PO sbp>160; Start 12/21/16 at 10:30 Docusate Sodium (Colace) 100 mg DAILY PO Last administered on 12/22/16 09:03; Admin Dose 100 MG; Start 12/21/16 at 11:00 Ferrous Sulfate (Ferrous Sulfate (Ec)) 325 mg DAILY PO Last administered on 09:03; Admin Dose 325 MG; Start 12/21/16 at 11:00 Gabapentin (Neurontin) 300 mg BID PO Last administered on 12/22/16 09:02; Admin Dose 300 MG; Start 12/21/16 at 11:00 Hydralazine HCl (Apresoline) 10 mg Q8 PO Last administered on 12/22/16 05:41; Admin Dose 10 MG; Start 12/21/16 at 14:00 Levothyroxine Sodium (Synthroid) 75 mcg DAILY@06 PO Last administered on 05:41; Admin Dose 75 MCG; Start 12/22/16 at 06:00 Loratadine (Claritin) 10 mg DAILY PO Last administered on 12/22/16 09:02; Admin Dose 10 MG; Start 12/21/16 at 11:00 Sodium Bicarbonate (Sodium Bicarbonate Tab) 650 mg BID PO Last administered on 12/22/16 09:02; Admin Dose 650 MG; Start 12/21/16 at 11:00 Miscellaneous Information 1 ea NOTE XX ; Start 12/21/16 at 11:00 Glucose (Glutose) 15 gm Q15M PRN PO DECREASED GLUCOSE; Start 12/21/16 at 11:00 Glucose (Glutose) 22.5 gm Q15M PRN PO DECREASED GLUCOSE; Start 12/21/16 at 11:00 Dextrose (D50w Syringe) 25 ml Q15M PRN IV DECREASED GLUCOSE; Start 12/21/16 at 11:00 Dextrose (D50w Syringe) 50 ml Q15M PRN IV DECREASED GLUCOSE; Start 12/21/16 at 11:00 Glucagon (Glucagen) 1 mg Q15M PRN IM DECREASED GLUCOSE; Start 2/9/17 at 11:00 Glucose (Glutose) 15 gm Q15M PRN BUCCAL DECREASED GLUCOSE; Start 12/21/16 at 11: 00 Hydralazine HCl (Apresoline) 10 mg Q6H PRN IV SBP>160; Start 12/21/16 at 11:00 Amlodipine Besylate (Norvasc) 5 mg DAILY PO Last administered on 12/22/16 09: 04; Admin Dose 5 MG; Start 12/22/16 at 09:00 Isosorbide Mononitrate (Imdur) 30 mg DAILY PO Last administered on 12/22/16 09 :03; Admin Dose 30 MG; Start 12/21/16 at 16:30 Juan Manuel Babcock DO Dec 22, 2016 11:12
--- NOTE | 2016-12-22 12:05 | PDOCDIS ---
Discharge Instructions DIAGNOSIS Discharge Diagnosis: Chest pain CONDITION Patient Condition: Stable HOME CARE INSTRUCTIONS: Special Diet: 1800 GOKUL, 2 GRAM NA OTHER ORDERS: Other Orders: 1. Low-cholesterol, carbohydrate controlled diet as tolerated. 2. Resume activities as tolerated. 3. Take medications as per prescription. 4. Follow-up with Dr. English as scheduled. 5. Follow-up with your primary care physician in 2 weeks. If you do not have a primary care physician, please call Dr. Luis Carlos Danielle's office. DARYL TRIVEDI NP Dec 22, 2016 12:05
[2016-12-22] MEDS ORDERED: AMLO-145 PO (12:08)
[2016-12-22] MEDS ORDERED: ISOS30TA5 PO (12:08)
[2016-12-22] MEDS ORDERED: MAGNESIUM CHLORIDE (SR) 64 MG TAB PO ONE (13:00)
--- NOTE | 2016-12-22 13:47 | DS ---
DATE OF ADMISSION: 12/21/2016 DATE OF DISCHARGE: 12/22/2016 FINAL DIAGNOSES 1. Chest pain. Acute coronary syndrome ruled out. 2. Accelerated hypertension. 3. Chronic kidney disease. 4. Dyslipidemia. 5. Hypothyroidism. 6. Prediabetes (hemoglobin A1c 6.3). CONSULTATIONS: 1. Dr. Juan Manuel Babcock, Cardiology. 2. Dr. Neno English, Nephrology. HOSPITAL COURSE: This is a 76-year-old male with past medical history of essential hypertension, hyperlipidemia, CAD, chronic kidney disease stage IV and hypothyroidism, who came to the emergency room with chief complaint of chest pain. The patient verbalized that the chest pain started on night of 06/2017. The patient verbalized the chest pain as substernal with radiation to the back. The patient denied any associated nausea, vomiting or diaphoresis. The patient denied any dyspnea. In the emergency room, the patient's 12-lead EKG showed normal sinus rhythm with premature atrial complexes. The patient was noted to have elevated blood pressure with an initial blood pressure of 189/ 84 in the emergency room. The patient was treated with aspirin and nitroglycerin in the emergency room. Provided the patient's history of present illness and his comorbidities, a clinical decision was made to admit the patient to inpatient setting to have him further evaluated. The patient was admitted to inpatient telemetry floor. Cardiology and nephrology consults were called on this patient. Serial troponins were ordered. A 2D echocardiogram was ordered. The patient's serial troponins remained negative. The patient's 2D echocardiogram showed preserved left ventricular ejection fraction with stage I diastolic dysfunction. Cardiology recommended no further cardiac workup. The patient's cardiac medications were optimized. Proceeding with further cardiac workup including nuclear perfusion cardiac study was not deemed to be appropriate at the current time because if the results are positive, the patient would not be a good candidate for coronary angiogram provided the patient's worsening renal function. The patient has underlying hypertension. The patient's antihypertensives were adjusted to obtain optimum blood pressure control. The patient has underlying chronic kidney disease and the patient follows Dr. English as outpatient. The patient was being followed by Dr. English in house. The patient has underlying dyslipidemia, mainly hypertriglyceridemia. The patient is on gemfibrozil, which will be continued. The patient has hypothyroidism. The patient's Synthroid was continued during the hospitalization. The patient was also noticed to have prediabetes. The patient had a hemoglobin A1c of 6.3. The patient was maintained on sliding scale insulin. However, the patient's random blood glucose were well controlled and the patient did not require any insulin replacement during the patient's hospital course. The patient had a stable hospital course. The patient was cleared by consultants to be discharged home. The patient denied any complaints at the time of discharge. DISCHARGE DISPOSITION/PLAN: The patient will be discharged home today. The patient was instructed to take a low-cholesterol, carbohydrate controlled diet. The patient was instructed to resume activities as tolerated. He was instructed to take medications as per prescription. He was instructed to follow up with Dr. English as scheduled. He was instructed to follow up with his primary care physician in 2 weeks and if he does not have a primary care physician, to please call Dr. Luis Carlos Danielle's office. The patient verbalized understanding of his discharge instructions. CONDITION AT DISCHARGE: Stable. DISCHARGE MEDICATIONS: 1. Amlodipine 5 mg p.o. daily. 2. Isosorbide mononitrate 30 mg p.o. daily. 3. Aspirin 81 mg p.o. daily. 4. Coreg 6.25 mg p.o. daily. 5. Colace 100 mg p.o. daily. 6. Ferrous sulfate 325 mg p.o. daily. 7. Gabapentin 300 mg p.o. b.i.d. 8. Gemfibrozil 600 mg p.o. q.p.m. 9. Synthroid 75 mcg p.o. before breakfast. PERTINENT LABORATORY AND DIAGNOSTIC DATA: 1. 2D echocardiogram. Ejection fraction of 65%. Stage I diastolic dysfunction. Estimated peak PA systolic pressure of 19 mmHg. 2. Hemoglobin A1c 6.3. 3. Fasting lipid panel: Triglycerides 177, total cholesterol 171, LDL 97, HDL 39. 4. Thyroid panel: TSH 4.740, FT4 of 1.01. 5. Latest CBC: WBC 5.4, hemoglobin 11.7, hematocrit 36.1, platelet count 103. 6. Latest BMP: Sodium 141, potassium 3.8, chloride 100, carbon dioxide 26, anion gap 19, BUN 53, creatinine 3.74, glucose 94, calcium 8.8, phosphorus 5.2, magnesium 1.6. 7. Renal ultrasound. Unremarkable retroperitoneal ultrasound. 8. Chest x-ray upon admission. Stable mild cardiomegaly and aortic atherosclerosis. No evidence of acute cardiopulmonary process. At this time, I would like to thank all the consultants for seeing the patient and providing clinical recommendations. The case and management of this patient was fully discussed with Dr. Mcmanus. Approximately 35 minutes were spent on coordinating the discharge on this patient. DARYL MCMANUS MD, AM/MARIAELENA Conf#: [id number] DID#: [id number]
--- NOTE | 2016-12-22 15:57 | CONS ---
Date/Time of Note Date/Time of Note DATE: 12/22/16 TIME: 15:56 Assessment/Plan Assessment/Plan Chief Complaint/Hosp Course IMPRESSION: 1. 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 2. Patient has history of chronic tubular interstitial nephritis also. 3. Patient has hypertension, history of anemia, stable now. The patient has history of proteinuria, history of dyslipidemia, history of coronary artery disease. Plan at this point is to continue to follow patient's electrolytes plan bmp stable no renal work up needed for now Problems: Consultation Date/Type/Reason Admit Date/Time Dec 21, 2016 at 08:14 Initial Consult Date Type of Consultation: renal 24 HR Interval Summary Constitutional: no complaints Exam/Review of Systems Vital Signs Vitals Vital Signs Date Time Temp Pulse Resp B/P Pulse Ox O2 Delivery O2 Flow Rate FiO2 12/22/16 12:20 97.4 68 18 152/76 92 12/21/16 12:45 Room Air Intake and Output 12/21/16 12/21/16 12/22/16 15:00 23:00 07:00 Intake Total 750 ml 250 ml Output Total 350 ml 800 ml Balance 400 ml -550 ml Exam Eyes: nl conjunctiva Neck: supple Respiratory: clear to auscultation Cardiovascular: regular rate and rhythm Gastrointestinal: soft Musculoskeletal: nl extremities to inspection Extremities: normal pulses Results Result Diagram: 12/22/16 0640 12/22/16 0640 Results 24 hrs Laboratory Tests Test 12/21/16 17:22 12/21/16 20:37 12/22/16 06:40 12/22/16 07:32 Bedside Glucose 123 72 91 Anion Gap 19 H Basophils # 0.0 Basophils % 0.4 Blood Urea Nitrogen 53 H Calcium Level 8.8 Carbon Dioxide Level 26 Chloride Level 100 Creatinine 3.74 H Eosinophils # 0.2 Eosinophils % 3.0 Glucose Level 94 Hematocrit 36.1 L Hemoglobin 11.7 L Lymphocytes # 1.3 Lymphocytes % 23.3 Magnesium Level 1.6 L Mean Corpuscular Hemoglobin 28.3 L Mean Corpuscular Hemoglobin Concent 32.4 Mean Corpuscular Volume 87.2 Mean Platelet Volume 10.6 #H Monocytes # 0.4 Monocytes % 8.1 Neutrophils # 3.5 Neutrophils % 65.0 Nucleated Red Blood Cells # 0.0 Nucleated Red Blood Cells % 0.0 Phosphorus Level 5.2 H Platelet Count 103 L Potassium Level 3.8 Red Blood Count 4.14 L Red Cell Distribution Width 14.5 Sodium Level 141 White Blood Count 5.4 Test 12/22/16 12:18 Bedside Glucose 108 Medications Medications Current Medications Lorazepam (Ativan) 0.5 mg Q6H PRN IV ANXIETY; Start 12/21/16 at 08:30 Ondansetron HCl (Zofran Inj) 4 mg Q6H PRN IV NAUSEA AND/OR VOMITING; Start 12/21 at 08:30 Nitroglycerin (Nitroglycerin (Sl Tab) 0.4 Mg) 1 tab Q5M PRN SL CHEST PAIN; Start 12/21/16 at 08:30 Acetaminophen (Tylenol Tab) 650 mg Q6H PRN PO PAIN LEVEL 1-3 OR FEVER Last administered on 12/21/16 22:59; Admin Dose 650 MG; Start 12/21/16 at 08:30 Morphine Sulfate (morphine) 2 mg Q4H PRN IV PAIN LEVEL 7-10; Start 12/21/16 at 08:30 Docusate Sodium (Colace) 100 mg Q12H PRN PO CONSTIPATION; Start 12/21/16 at 08: 30 Famotidine (Pepcid) 20 mg DAILY PO Last administered on 12/22/16 09:04; Admin Dose 20 MG; Start 12/21/16 at 11:00 Heparin Sodium (Porcine) (Heparin (5000 Units/0.5 ml)) 5,000 unit Q12 SC Last administered on 12/22/16 09:05; Admin Dose 5,000 UNIT; Start 12/21/16 at 11:00 Aspirin (Halfprin) 81 mg DAILY PO Last administered on 12/22/16 09:03; Admin Dose 81 MG; Start 12/21/16 at 11:00 Carvedilol (Coreg) 6.25 mg DAILY PO Last administered on 12/22/16 09:04; Admin Dose 6.25 MG; Start 12/21/16 at 11:00 Clonidine (Catapres) 0.1 mg Q4H PRN PO sbp>160; Start 12/21/16 at 10:30 Docusate Sodium (Colace) 100 mg DAILY PO Last administered on 12/22/16 09:03; Admin Dose 100 MG; Start 12/21/16 at 11:00 Ferrous Sulfate (Ferrous Sulfate (Ec)) 325 mg DAILY PO Last administered on 09:03; Admin Dose 325 MG; Start 12/21/16 at 11:00 Gabapentin (Neurontin) 300 mg BID PO Last administered on 12/22/16 09:02; Admin Dose 300 MG; Start 12/21/16 at 11:00 Hydralazine HCl (Apresoline) 10 mg Q8 PO Last administered on 12/22/16 14:22; Admin Dose 10 MG; Start 12/21/16 at 14:00 Levothyroxine Sodium (Synthroid) 75 mcg DAILY@06 PO Last administered on 05:41; Admin Dose 75 MCG; Start 12/22/16 at 06:00 Loratadine (Claritin) 10 mg DAILY PO Last administered on 12/22/16 09:02; Admin Dose 10 MG; Start 12/21/16 at 11:00 Sodium Bicarbonate (Sodium Bicarbonate Tab) 650 mg BID PO Last administered on 12/22/16 09:02; Admin Dose 650 MG; Start 12/21/16 at 11:00 Miscellaneous Information 1 ea NOTE XX ; Start 12/21/16 at 11:00 Glucose (Glutose) 15 gm Q15M PRN PO DECREASED GLUCOSE; Start 12/21/16 at 11:00 Glucose (Glutose) 22.5 gm Q15M PRN PO DECREASED GLUCOSE; Start 12/21/16 at 11:00 Dextrose (D50w Syringe) 25 ml Q15M PRN IV DECREASED GLUCOSE; Start 12/21/16 at 11:00 Dextrose (D50w Syringe) 50 ml Q15M PRN IV DECREASED GLUCOSE; Start 12/21/16 at 11:00 Glucagon (Glucagen) 1 mg Q15M PRN IM DECREASED GLUCOSE; Start 12/21/16 at 11:00 Glucose (Glutose) 15 gm Q15M PRN BUCCAL DECREASED GLUCOSE; Start 12/21/16 at 11: 00 Hydralazine HCl (Apresoline) 10 mg Q6H PRN IV SBP>160; Start 12/21/16 at 11:00 Amlodipine Besylate (Norvasc) 5 mg DAILY PO Last administered on 12/22/16 09: 04; Admin Dose 5 MG; Start 12/22/16 at 09:00 Isosorbide Mononitrate (Imdur) 30 mg DAILY PO Last administered on 12/22/16t 09 :03; Admin Dose 30 MG; Start 12/21/16 at 16:30 KATHIA ZHANG MD Dec 22, 2016 15:57
== END 2016-12-22 18:00 | disposition home or self-care (01) ==
LOC: E/R 06:09 → MS4 08:14
PROVIDERS: ADMIT Student in an Organized Health Care Education/Training Program; ATTEND Student in an Organized Health Care Education/Training Program
DX: R07.9 Chest pain, unspecified (principal); I12.9 Hypertensive chronic kidney disease with stage 1 through stage 4 chronic kidney disease, or unspecified chronic kidney disease; N18.4 Chronic kidney disease, stage 4 (severe); E78.5 Hyperlipidemia, unspecified; E03.9 Hypothyroidism, unspecified; R73.03 Prediabetes; I25.10 Atherosclerotic heart disease of native coronary artery without angina pectoris; Z87.891 Personal history of nicotine dependence; Z79.82 Long term (current) use of aspirin; Z82.49 Family history of ischemic heart disease and other diseases of the circulatory system; Z83.3 Family history of diabetes mellitus; Z84.1 Family history of disorders of kidney and ureter
CPT/HCPCS: 36415; 71010; 76775; 80048; 80061; 81001; 82550; 82553; 82962; 83036; 83735; 84100; 84155; 84300; 84439; 84443; 84484; 84560; 85025; 85610; 85730; 89190; 93005; 93306; 96372; 99285; G0378; J1644; J1815; 81003

== ENCOUNTER 2016-12-24 21:21 | Emergency (ER) | payer MEDICARE, OTHER ==
[~2016-12-24] VITALS: Ht 167.6 cm; Wt 89.0 kg
[~2016-12-24 21:21] MED LIST changes: -ACET500T98 PO; +AMLO-145 PO; -AMLO-147 PO; -CLON-379 PO; -HYDR10TA36 PO; +ISOS30TA5 PO; -LORA10TA3 PO; -ORPH100T PO; -SODI650T PO
[2016-12-24 21:24] VITALS: Ht 167.6 cm; Wt 89.0 kg
[2016-12-24] MEDS ORDERED: morphine 4 MG/ML VIAL IV STA ×2 (21:52→23:28)
[2016-12-24] MEDS ORDERED: ONDANSETRON 4 MG INJ IV STA ×2 (21:52→23:28)
[2016-12-24] MEDS ORDERED: SOD CHLORIDE 0.9% 500 ML IV ONE (22:00)
--- NOTE | 2016-12-24 22:03 | ERD ---
ER Documentation Chief Complaint Date/Time DATE: 12/24/16 TIME: 21:55 Chief Complaint NECK PAIN AND BACK PAIN FOR PAST 1 DAYS HPI 76-year-old male with a history of hypertension and kidney disease presents to the emergency department stating that while resting at home, patient suddenly felt a 9 out of 10 sharp mid thoracic back pain and then neck pain soon after. Patient notes the pain is worse upon deep inspiration. Patient states that although he has experienced back and neck pain in the past he has never experienced this intensity of pain. Patient denies any trauma, shortness of breath, chest pain, recent surgery, calf swelling or redness, or pedal edema peer patient was just discharged from this hospital 2 days ago and was admitted for acute kidney failure. Patient denies fever or chills, blurry vision, nausea , vomiting, diarrhea or oliguria. ROS All systems reviewed and are negative except as per history of present illness. Medications Home Meds Active Scripts Hydrocodone/Acetaminophen ([place] 5-325 Tablet) 1 Each Tablet, 1 TAB PO Q6H Y for PAIN, #20 TAB Prov:SID MESSINA PA-C 12/25/16 Cyclobenzaprine Hcl* (Cyclobenzaprine Hcl*) 10 Mg Tablet, 10 MG PO TID, #15 TAB Prov:SID MESSINA PA-C 12/25/16 Isosorbide Mononitrate* (Isosorbide Mononitrate*) 30 Mg Tab.er.24h, 30 MG PO DAILY for 30 Days Prov:DARYL TRIVEDI NP 12/22/16 Amlodipine Besylate* (Amlodipine Besylate*) 5 Mg Tablet, 5 MG PO DAILY for 30 Days, TAB Prov:DARYL TRIVEDI NP 12/22/16 Reported Medications Gemfibrozil* (Gemfibrozil*) 600 Mg Tablet, 600 MG PO QPM, TAB 09/05/15 Ferrous Sulfate* (Ferrous Sulfate*) 325 Mg Tablet, 325 MG PO DAILY, TAB 09/05/15 Docusate Sodium* (Docusate Sodium*) 100 Mg Capsule, 100 MG PO DAILY, CAP 09/05/15 Levothyroxine Sodium* (Levothyroxine Sodium*) 75 Mcg Tablet, 75 MCG PO AC BREAKFAST, TAB 09/05/15 Carvedilol* (Coreg*) 6.25 Mg Tablet, 6.25 MG PO DAILY, TAB 09/05/15 Gabapentin* (Gabapentin*) 300 Mg Capsule, 300 MG PO BID, CAP 09/05/15 Aspirin* (Aspirin* EC) 81 Mg Tablet.dr, 81 MG PO DAILY, TAB 09/05/15 Discontinued Reported Medications Amlodipine Besylate* (Amlodipine Besylate*) 10 Mg Tablet, 10 MG PO DAILY, TAB 09/05/15 Loratadine* (Loratadine*) 10 Mg Tablet, 10 MG PO DAILY, TAB 09/05/15 Discontinued Scripts Acetaminophen (Tylenol) 500 Mg Tab, 500 MG PO Q6, #20 TAB Prov:DANIEL NEWBERRY PA-C 06/22/16 Orphenadrine Citrate (Norflex) 100 Mg Tablet.sa, 100 MG PO BID for 3 Days, TAB.SA Prov:DANIEL NEWBERRY PA-C 06/22/16 Clonidine Hcl* (Clonidine Hcl*) 0.1 Mg Tab, 0.1 MG PO Q4H Y for sbp>160, #40 TAB Prov:ARLENE SOLORIO 09/09/15 Hydralazine Hcl* (Apresoline*) 10 Mg Tab, 10 MG PO Q8 for 30 Days, TAB Prov:ARLENE SOLORIO 09/09/15 Sodium Bicarbonate* (Sodium Bicarbonate*) 650 Mg Tablet, 650 MG PO BID, #60 TAB Prov:AILIN GHOSH MD 09/09/15 Allergies Allergies: Coded Allergies: No Known Allergy (Unverified , 12/21/16) PMhx/Soc History of Surgery: No Anesthesia Reaction: No Hx Neurological Disorder: No Hx Respiratory Disorders: No Hx Cardiac Disorders: Yes (HTN) Hx Psychiatric Problems: No Hx Miscellaneous Medical Probl: No Hx Alcohol Use: No Hx Substance Use: No Hx Tobacco Use: No Smoking Status: Never smoker Physical Exam Vitals Vital Signs Date Time Temp Pulse Resp B/P Pulse Ox O2 Delivery O2 Flow Rate FiO2 12/25/16 01:18 98.3 84 18 155/70 97 Room Air 12/24/16 21:24 98.6 79 18 168/77 93 Physical Exam Const: Well-developed, well-nourished. Head: Atraumatic Eyes: Normal Conjunctiva ENT: Normal External Ears, Nose and Mouth. Oropharynx clear without evidence of swelling or erythema Neck: Full range of motion..~ No meningismus. Resp: Clear to auscultation bilaterally, no wheezes, rhonchi, rales Cardio: Irregular rate and rhythm auscultated. No murmurs or rubs Abd: Soft, non tender, non distended. Normal bowel sounds Skin: No petechiae or rashes Back: Midline cervical spine tenderness. Midline tenderness noted throughout thoracic region. No lumbar tenderness. bilateral flank tenderness to palpation Ext: No cyanosis, or edema Neur: Awake and alert Psych: Normal Mood and Affect Result Diagram: 12/24/16220112/24/162201 Results 24 hrs Laboratory Tests Test 12/24/16 22:02 12/24/16 22:05 Activated Partial Thromboplast Time 30.2Sec Alanine Aminotransferase (ALT/SGPT) 28IU/L Albumin 4.3g/dl Albumin/Globulin Ratio 1.34 Alkaline Phosphatase 111IU/L Anion Gap 18 Aspartate Amino Transf (AST/SGOT) 23IU/L Basophils # 0.010^3/ul Basophils % 0.2% Blood Morphology Comment Blood Urea Nitrogen 66mg/dl Calcium Level 9.2mg/dl Carbon Dioxide Level 24mmol/L Chloride Level 100mmol/L Creatinine 4.34mg/dl Direct Bilirubin 0.00mg/dl Eosinophils # 0.110^3/ul Eosinophils % 0.5% Globulin 3.20g/dl Glucose Level 153mg/dl Hematocrit 39.6% Hemoglobin 13.3g/dl INR International Normalized Ratio 1.01 Indirect Bilirubin 0.2mg/dl Lymphocytes # 0.910^3/ul Lymphocytes % 8.4% Mean Corpuscular Hemoglobin 28.8pg Mean Corpuscular Hemoglobin Concent 33.7g/dl Mean Corpuscular Volume 85.4fl Mean Platelet Volume 8.7fl Monocytes # 0.910^3/ul Monocytes % 7.7% Neutrophils # 9.210^3/ul Neutrophils % 83.2% Nucleated Red Blood Cells # 0.010^3/ul Nucleated Red Blood Cells % 0.0/100WBC Platelet Count 16923^3/UL Potassium Level 4.3mmol/L Prothrombin Time 13.3Sec Prothrombin Time Ratio 1.0 Red Blood Count 4.6410^6/ul Red Cell Distribution Width 15.0% Sodium Level 138mmol/L Total Bilirubin 0.2mg/dl Total Protein 7.5g/dl Troponin I 0.017ng/ml White Blood Count 11.010^3/ul Urine Bilirubin NEGATIVE Urine Clarity CLEAR Urine Color LT. YELLOW Urine Glucose NEGATIVE% Urine Hemoglobin 1+ Urine Ketones NEGATIVE Urine Leukocyte Esterase NEGATIVE Urine Microscopic RBC 0-2/HPF Urine Microscopic WBC NONE SEEN/HPF Urine Nitrite NEGATIVE Urine Specific [place] 1.020 Urine Squamous Epithelial Cells RARE Urine Total Protein 2+ Urine Urobilinogen 0.2 E.U./dL Urine pH 5.5 Current Medications Medications (Trade) Dose Ordered Sig/Jesús Route PRN Reason Start Time Stop Time Status Last Admin Dose Admin Sodium Chloride (NS) 500 ml @ 500 mls/hr Q1H ONCE IV 12/24/16 22:00 12/24/16 22:59 DC 12/24/16 22:45 Morphine Sulfate (morphine) 4 mg ONCE STAT IV 12/24/16 21:52 12/24/16 21:53 DC 12/24/16 22:45 Ondansetron HCl (Zofran Inj) 4 mg ONCE STAT IV 12/24/16 21:52 12/24/16 21:53 DC 12/24/16 22:45 Morphine Sulfate (morphine) 4 mg ONCE STAT IV 12/24/16 23:28 12/24/16 23:34 DC 12/24/16 23:37 Ondansetron HCl (Zofran Inj) 4 mg ONCE STAT IV 12/24/16 23:28 12/24/16 23:34 DC 12/24/16 23:36 Procedures/MDM PROCEDURE: XR Cervical Spine. CLINICAL INDICATION: Trauma. TECHNIQUE: AP, lateral and odontoid views of the cervical spine were performed. COMPARISON: There are no similar studies submitted for comparison. FINDINGS: Multilevel cervical spondylotic changes are present. Vertebral body stature and alignment maintained. There is no evidence of fracture or subluxation. The dens is intact. There is no prevertebral soft tissue swelling. IMPRESSION: No fracture or subluxation. RPTAT: HIKT .Abhinav Prince MD, MD Date Time Electronically viewed and signed by .Abhinav Prince MD, MD on 12/25/2016 00:44 .T/ PROCEDURE: XR Chest. CLINICAL INDICATION: Pain. TECHNIQUE: Single frontal chest x-ray. COMPARISON: 12/21/2016 FINDINGS: Heart is enlarged.. There is no CHF.. There are areas left greater right basilar atelectasis.. Probable small left pleural effusion.. There is no pneumothorax. The osseous structures are unremarkable. IMPRESSION: Cardiomegaly. Left greater right basilar atelectasis. Probable small left pleural effusion. RPTAT: HMVK .Juan Manuel Gibson MD, Date Time Electronically viewed and signed by .Juan Manuel Gibson MD, MD on 12/25/2016 00:41 .K/ CC: SID MESSINA PA-C PROCEDURE: Thoracic Spine. CLINICAL INDICATION: Pain TECHNIQUE: Three views of the thoracic spine are available for review. COMPARISON: None available FINDINGS: No fracture is identified. There is maintenance of height of the vertebral bodies. Alignment is maintained. There is no spondylolisthesis. There are diffuse disk space hypertrophic degenerative changes. Bone mineralization is within normal limits. Soft tissues are unremarkable. IMPRESSION: 1. No acute abnormality. 2. Diffuse degenerative changes. RPTAT: HMVK .Juan Manuel Gibson MD, MD Date Time Electronically viewed and signed by .Juan Manuel Gibson MD, MD on 12/25/2016 00:53 .K/ CC: SID MESSINA-Rickey Chest X-ray 1V Interpreted by radiologist: Soft Tissue: There are areas left greater right basilar atelectasis.. Possible small left pleural effusion Bones: Unremarkable Mediastinum/Cardiac Silhouette/Lungs: Heart is enlarged. No evidence of CHF X-ray C spine 3V Interpreted by me: Bones: No fracture Joints: No dislocation Foreign body: None EKG: Rate/Rhythm: Normal sinus rhythm at 96 bpm QRS, ST, T-waves: Evidence of prior inferior infarct Impression: Possible LVH (Exam) ENT exam was normal. Lungs are clear without evidence of wheezes, rales , rhonchi CBC showed no evidence of systemic infection or severe anemia. CMP showed a creatinine level measured at 4.34. This is slightly increased from the last reading of 3.74. No evidence of significant electrolyte abnormalities, severe acidosis, alkalosis, or liver disease. UA showed evidence of mild hematuria without evidence of infection. Patient received bolus of fluids as well as morphine and Zofran in the emergency department and reports improvement of pain. Case discussed with Dr. Hicks and plan was made to discharge with strict return precautions. Patient instructed to follow-up with nephrology as scheduled. Based on patient's history of present illness and physical examination the decision was made to discharge. Laboratory results provided to the patient prior to discharge. The patient was re-evaluated after ED treatment and stabilizing measures, and symptoms have improved. There is no evidence of life threatening injuries or illnesses at this time. Patient will receive pain medication to control his back and neck pain. On re-examination, patient resting in no distress, stable vital signs, reports feeling better and safe for discharge with outpatient follow up with PMD in 1-2 days. Patient given return precautions. Patient expressed understanding of and agreement with plan. Departure Diagnosis: Primary Impression: Elevated serum creatinine Additional Impressions: Neck pain Thoracic spine pain Hypertension Hypertension type: unspecified secondary hypertension Qualified Code: I15.9 - Secondary hypertension SID MESSINA PA-C Dec 24, 2016 22:02
[2016-12-24 22:18] LABS: BASOPHILS % 0.2 % (0.0-2.0); EOSINOPHILS # 0.1 10^3/ul (0.0-0.5); EOSINOPHILS % 0.5 % (0.0-7.0); HEMATOCRIT 39.6 % (42.0-52.0); HEMOGLOBIN 13.3 g/dl (14.0-18.0); LYMPHOCYTES # 0.9 10^3/ul (0.8-2.9); LYMPHOCYTES % 8.4 % (15.0-51.0); MEAN CORPUSCULAR HEMOGLOBIN 28.8 pg (29.0-33.0); MEAN CORPUSCULAR HGB CONC 33.7 g/dl (32.0-37.0); MEAN CORPUSCULAR VOLUME 85.4 fl (82.0-101.0); MEAN PLATELET VOLUME 8.7 fl (7.4-10.4); MONOCYTE # 0.9 10^3/ul (0.3-0.9); MONOCYTES % 7.7 % (0.0-11.0); NEUTROPHIL # 9.2 10^3/ul (1.6-7.5); NEUTROPHILS % 83.2 % (39.0-77.0); PLATELET COUNT 137 10^3/UL (140-440); RED BLOOD COUNT 4.64 10^6/ul (4.70-6.10)
[2016-12-24 22:21] LABS: CONDITION 1; LH ANALYZER COMMENTS 1
[2016-12-24 22:26] LABS: ADD UMIC YES; URINE BILIRUBIN (Dip) NEGATIVE (NEGATIVE); URINE BLOOD (Dip) 1+ (NEGATIVE); URINE COLOR LT. YELLOW (YELLOW); URINE GLUCOSE (Dip) NEGATIVE (NEGATIVE); URINE KETONES (Dip) NEGATIVE (NEGATIVE); URINE LEUKOCYTE ESTERASE (Dip) NEGATIVE (NEGATIVE); URINE NITRITE (Dip) NEGATIVE (NEGATIVE); URINE TOTAL PROTEIN (Dip) 2+ (NEGATIVE); URINE UROBILINOGEN (Dip) 0.2 E.U./dL (0.1-1.0)
[2016-12-24 22:30] LABS: INR 1.01; PROTIME 13.3 Sec (12.2-14.2)
[2016-12-24 22:31] LABS: PARTIAL THROMBOPLASTIN TIME 30.2 Sec (25.0-35.0)
[2016-12-24 22:33] LABS: ALBUMIN 4.3 g/dl (3.3-4.9)
[2016-12-24 22:34] LABS: POTASSIUM 4.3 mmol/L (3.5-5.1)
[2016-12-24 22:36] LABS: ALBUMIN/GLOBULIN RATIO 1.34; BILIRUBIN,INDIRECT 0.2 mg/dl (0-1.1); BILIRUBIN,TOTAL 0.2 mg/dl (0.2-1.3); CREATININE 4.34 mg/dl (0.61-1.24); TOTAL PROTEIN 7.5 g/dl (6.1-8.1)
[2016-12-24 22:37] LABS: CALCIUM 9.2 mg/dl (8.4-10.2)
[2016-12-24 22:38] LABS: SQUAMOUS EPITHELIAL CELL,UR RARE; URINE RBCS 0-2 /HPF (0)
[2016-12-24 22:48] LABS: TROPONIN-I 0.017 ng/ml (0.00-0.12)
--- NOTE | 2016-12-25 00:42 | RADRPT ---
PROCEDURE: XR Chest. CLINICAL INDICATION: Pain. TECHNIQUE: Single frontal chest x-ray. COMPARISON: 12/21/2016 FINDINGS: Heart is enlarged.. There is no CHF.. There are areas left greater right basilar atelectasis.. Pro bable small left pleural effusion.. There is no pneumothorax. The osseous structures are unremarka ble. IMPRESSION: Cardiomegaly. Left greater right basilar atelectasis. Probable small left pleural effusion. RPTAT: HMVK .Juan Manuel Gibson MD, Date Time Electronically viewed and signed by .Juan Manuel Gibson MD, on 12/25/2016 00:41 .K/
--- NOTE | 2016-12-25 00:44 | RADRPT ---
PROCEDURE: XR Cervical Spine. CLINICAL INDICATION: Trauma. TECHNIQUE: AP, lateral and odontoid views of the cervical spine were performed. COMPARISON: There are no similar studies submitted for comparison. FINDINGS: Multilevel cervical spondylotic changes are present. Vertebral body stature and alignment maintaine d. There is no evidence of fracture or subluxation. The dens is intact. There is no prevertebral s oft tissue swelling. IMPRESSION: No fracture or subluxation. RPTAT: HIKT .Abhinav Prince MD, MD Date Time Electronically viewed and signed by .Abhinav Prince MD, on 12/25/2016 00:44 .T/
--- NOTE | 2016-12-25 00:53 | RADRPT ---
PROCEDURE: Thoracic Spine. CLINICAL INDICATION: Pain TECHNIQUE: Three views of the thoracic spine are available for review. COMPARISON: None available FINDINGS: No fracture is identified. There is maintenance of height of the vertebral bodies. Alignment is m aintained. There is no spondylolisthesis. There are diffuse disk space hypertrophic degenerative c hanges. Bone mineralization is within normal limits. Soft tissues are unremarkable. IMPRESSION: 1. No acute abnormality. 2. Diffuse degenerative changes. RPTAT: HMVK .Juan Manuel Gibson MD, Date Time Electronically viewed and signed by .Juan Manuel Gibson MD, on 12/25/2016 00:53 .K/
[2016-12-25] MEDS ORDERED: CYCL-319 PO (01:06)
[2016-12-25] MEDS ORDERED: HYDR-906 PO (01:06)
[2016-12-25 01:18] VITALS: BP 155/70; PULSE 84; RESP 18; TEMP 98.3
== END 2016-12-25 01:18 | disposition home or self-care (01) ==
LOC: FTE 21:21
DX: R79.89 Other specified abnormal findings of blood chemistry (principal); M54.6 Pain in thoracic spine; I15.9 Secondary hypertension, unspecified; I10 Essential (primary) hypertension; E11.9 Type 2 diabetes mellitus without complications; R07.9 Chest pain, unspecified; Z79.82 Long term (current) use of aspirin
CPT/HCPCS: 36415; 71010; 72050; 72072; 80053; 81001; 84484; 85025; 85610; 85730; 93005; 96361; 96374; 96375; 96376; 99285; J2270; J2405; J7040; 81003

== ENCOUNTER 2017-03-22 06:24 | Emergency (ER) | payer MEDICARE, OTHER ==
[~2017-03-22] VITALS: Ht 170.2 cm; Wt 93.5 kg
[~2017-03-22 06:24] MED LIST changes: +CYCL-319 PO; +HYDR-906 PO
[2017-03-22 06:29] VITALS: Ht 170.2 cm; Wt 93.5 kg
[2017-03-22] MEDS ORDERED: HYDROCODONE/APAP (5/325) TAB PO ONE (07:00)
--- NOTE | 2017-03-22 07:17 | RADRPT ---
PROCEDURE: XR Lumbar Spine. CLINICAL INDICATION: Back pain. TECHNIQUE: Three views. AP, lateral and cone-down lateral view of the lumbar spine were obtained. COMPARISON: No prior studies are available for comparison. FINDINGS: There is normal stature and alignment of the vertebrae. There is no fracture. There is no lytic or blastic lesion. There are degenerative changes with osteophytes throughout. The disk height is normal. Vascular calcifications are present consistent with atherosclerosis. IMPRESSION: 1. Degenerative changes. 2. Atherosclerosis. 3. No acute abnormality. RPTAT: QQ .Walt Silva MD, MD Date Time Electronically viewed and signed by .Walt Silva MD, on 03/22/2017 07:17 .R/
[2017-03-22] MEDS ORDERED: TYL500 PO (07:24)
[2017-03-22] MEDS ORDERED: ORPH100T PO (07:24)
--- NOTE | 2017-03-22 07:33 | ERD ---
ER Documentation Chief Complaint Date/Time DATE: 03/22/17 TIME: 07:27 Chief Complaint back pain x 1 week, no injury HPI This is a 76-year-old male with a past medical history of hypertension, hyperlipidemia, cardiovascular disease, hypothyroidism that presents to the ER for right-sided lower back pain for the last week. Pain started suddenly and has been intermittent since. Patient states that back pain is throbbing in quality and radiates horizontally across his back to the left side. Area is minimally tender to palpation when he touches it. Pain is worse whenever he is laying down and made better whenever he is standing up. Patient does not have a history of trauma. He denies any urinary frequency, dysuria or hematuria. He denies any urinary or bowel incontinence. He denies any difficulty in walking or decreased strength in his lower extremities. Patient denies any fevers, chills, night sweats. Patient denies any abdominal pain, nausea, vomiting, diarrhea. He denies any chest pain or shortness of breath. Upon review of old medical records patient has had one episode of similar back pain one year ago. ROS 12 point review of systems was done, all negative except per HPI. Medications Home Meds Active Scripts Orphenadrine Citrate (Norflex) 100 Mg Tablet.sa, 100 MG PO BID for 5 Days, TAB.SA Prov:NEREIDA RODRIGUEZ 03/22/17 Acetaminophen* (Tylenol*) 500 Mg Tab, 500 MG PO Q4H Y for MILD PAIN LEVEL 1-3 for 3 Days, TAB Prov:NEREIDA RODRIGUEZ 03/22/17 Hydrocodone/Acetaminophen (Stowell 5-325 Tablet) 1 Each Tablet, 1 TAB PO Q6H Y for PAIN, #20 TAB Prov:SID MESSINA PA-C 12/25/16 Cyclobenzaprine Hcl* (Cyclobenzaprine Hcl*) 10 Mg Tablet, 10 MG PO TID, #15 TAB Prov:SID MESSINA PA-C 12/25/16 Isosorbide Mononitrate* (Isosorbide Mononitrate*) 30 Mg Tab.er.24h, 30 MG PO DAILY for 30 Days Prov:DARYL TRIVEDI NP 12/22/16 Amlodipine Besylate* (Amlodipine Besylate*) 5 Mg Tablet, 5 MG PO DAILY for 30 Days, TAB Prov:DARYL TRIVEDI NP 12/22/16 Reported Medications Gemfibrozil* (Gemfibrozil*) 600 Mg Tablet, 600 MG PO QPM, TAB 09/05/15 Ferrous Sulfate* (Ferrous Sulfate*) 325 Mg Tablet, 325 MG PO DAILY, TAB 09/05/15 Docusate Sodium* (Docusate Sodium*) 100 Mg Capsule, 100 MG PO DAILY, CAP 09/05/15 Levothyroxine Sodium* (Levothyroxine Sodium*) 75 Mcg Tablet, 75 MCG PO AC BREAKFAST, TAB 09/05/15 Carvedilol* (Coreg*) 6.25 Mg Tablet, 6.25 MG PO DAILY, TAB 09/05/15 Gabapentin* (Gabapentin*) 300 Mg Capsule, 300 MG PO BID, CAP 09/05/15 Aspirin* (Aspirin* EC) 81 Mg Tablet.dr, 81 MG PO DAILY, TAB 09/05/15 Allergies Allergies: Coded Allergies: No Known Allergy (Unverified , 03/22/17) PMhx/Soc History of Surgery: No Anesthesia Reaction: No Hx Neurological Disorder: No Hx Respiratory Disorders: No Hx Cardiac Disorders: Yes (htn,dm) Hx Psychiatric Problems: No Hx Miscellaneous Medical Probl: Yes (chronic back pain) Hx Alcohol Use: Yes Hx Substance Use: No Hx Tobacco Use: No Smoking Status: Never smoker Physical Exam Vitals Vital Signs Date Time Temp Pulse Resp B/P Pulse Ox O2 Delivery O2 Flow Rate FiO2 03/22/17 06:29 97.3 56 18 167/78 99 Physical Exam GENERAL: The patient is well developed and appropriate for usual state of health , in no apparent distress. CHEST: Clear to auscultation bilaterally. There are no rales, wheezes or rhonchi. HEART: Regular rate and rhythm. No murmurs, clicks, rubs or gallops. ABDOMEN: Soft, nontender and nondistended. No pulsatile abdominal mass. BACK: No midline or flank tenderness. No lumbar spine mid point tenderness, no crepitus no deformities. Tense paraspinal muscles. Negative leg raise test. No step- offs. EXTREMITIES: No focal swelling or erythema. Full range of motion. Grossly neurovascularly intact. NEURO: Alert and oriented. SKIN: There is no apparent rash or petechia. The skin is warm and dry. Results 24 hrs Current Medications Medications (Trade) Dose Ordered Sig/Jesús Route PRN Reason Start Time Stop Time Status Last Admin Dose Admin Acetaminophen/ Hydrocodone Bitart (Stowell (5/325)) 1 tab ONCE ONCE PO 03/22/17 07:00 03/22/17 07:01 DC 03/22/17 07:23 Procedures/MDM Differential Diagnosis includes but is not limited to back strain, vertebral fracture, epidural abscess, cauda equina, herniated disc, AAA rupture, kidney stones, UTI, pyelonephritis. At this time etiology of back pain is unknown, however patient does not have any fractures or dislocations. Suspicion for cauda equina or epidural abscess is low, patient is neurovascularly intact to his lower extremities and is afebrile and well-appearing. Suspicion for malignancy is low patient does not have any constitutional symptoms. Patient does not have any complaints of hearing urinary frequency dysuria or hematuria I doubt urinary tract infection, pyelonephritis or nephrolithiasis. Suspicion for AAA is low as patient does not have any abdominal pain. Patient was given Stowell in the ER without any complications. He will be sent home with Tylenol and with naproxen. Patient's blood pressure was elevated upon triage however he is not in any hypertensive emergency urgency. Patient was advised to follow- up with his primary care doctor regarding his blood pressure. I shared my medical decision making with the patient's he understands and agrees with plan. Patient should return to ER if symptoms worsen and follow-up with his primary care doctor within 1-2 days. Departure Diagnosis: Primary Impression: Back pain Condition: Stable Patient Instructions: Back Pain (Acute Or Chronic) Referrals: ANKIT TRUJILLO MD (PCP) Additional Instructions: Llame al doctor MAANA y lobo janna JOSS PARA DENTRO DE 1-2 COFFEY.Dgale a la secretaria que nosotros le instruimos hacer esta joss.Avise o llame si solomon condicin se empeora antes de la joss. Regresa aqui si peor o no mejor. NEREIDA RODRIGUEZ March 22, 2017 07:33
== END 2017-03-22 07:36 | disposition home or self-care (01) ==
LOC: FTE 06:24
DX: M54.9 Dorsalgia, unspecified (principal); I10 Essential (primary) hypertension; E11.9 Type 2 diabetes mellitus without complications; E03.9 Hypothyroidism, unspecified; Z79.82 Long term (current) use of aspirin
CPT/HCPCS: 72100

== ENCOUNTER 2017-03-26 07:36 | Emergency (ER) | payer MEDICARE, OTHER ==
[~2017-03-26] VITALS: Ht 172.7 cm; Wt 92.5 kg
[~2017-03-26 07:36] MED LIST changes: +ORPH100T PO; +TYL500 PO
[2017-03-26 07:40] VITALS: Ht 172.7 cm; Wt 92.5 kg
[2017-03-26] MEDS ORDERED: HYDROCODONE/APAP (5/325) TAB PO ONE (08:30)
--- NOTE | 2017-03-26 09:34 | RADRPT ---
PROCEDURE: CT Lumbar Spine without contrast. CLINICAL INDICATION: Lower back pain. TECHNIQUE: Noncontrast CT of the lumbar spine was performed with multiplanar reformatted images gen erated from the axial acquired data. The administered radiation dose was CTDI vol = 34.18 mGy, DLP = 1058 mGy-cm. One or more of the following dose reduction techniques were used: Automated exposure control, Adjustment of the mA and/or kV according to patient size, or Use of iterative reconstructio n technique. COMPARISON: Noncontrast CT of the lumbar spine from June 22, 2016. FINDINGS: There is normal lumbar lordosis. There is a chronic minimal T12 vertebral body compression fracture. Otherwise vertebral body height s are maintained. There is no acute fracture. There is normal alignment. There is no destructive osseous lesion. The discs are normal in height. There is vacuum disk phenomenon at L5-S1. T11-T12: There is a 2 mm broad-based disk osteophyte complex with dorsal disk calcification without spinal canal or bilateral foraminal stenosis. This level is unchanged. T12-L1 : There is a 2 mm broad-based disk osteophyte complex with moderate bilateral facet arthropat hy and ligamentum flavum infolding without spinal canal stenosis. There is mild to moderate bilater al foraminal stenosis. This level is unchanged. L1-L2 : There is a 3 mm broad-based disk osteophyte complex and moderate bilateral facet arthropathy without spinal canal stenosis. There is mild to moderate right without left foraminal stenosis. Th is level is unchanged. L2-L3 : There is a 3 mm broad-based disk bulge and moderate bilateral facet arthropathy with mild sp inal canal stenosis. There is mild to moderate right without left foraminal stenosis. This level is unchanged. L3-L4 : There is a 3 mm broad-based disk bulge with moderate bilateral facet arthropathy and ligamen francisco flavum infolding causing mild to moderate spinal canal stenosis. There is mild to moderate bila teral foraminal stenosis. This level is unchanged. L4-L5 : There is a 4 mm broad-based disk bulge with left dorsolateral disk calcifications with moder ate bilateral facet arthropathy and ligamentum flavum infolding causing moderate to severe spinal ca nal stenosis. There is moderate left with mild right foraminal stenosis with contact of the exiting left L4 nerve root. This level is unchanged. L5-S1 : There is a 4 mm circumferential disk bulge with moderate bilateral facet arthropathy and lig amentum flavum infolding causing moderate spinal canal stenosis. There is severe bilateral foramina l stenosis impinging the exiting bilateral L5 nerve roots. This level is unchanged. The sacroiliac joints are intact. There are prominent bilateral bridging sacroiliac joint osteophyte s. There is 1 cm exophytic right renal cyst. IMPRESSION: No significant change. 1. Chronic minimal T12 vertebral body compression fracture. No acute fracture. 2. L4-L5 broad-based disk bulge with moderate to severe spinal canal stenosis. There is moderate le ft foraminal stenosis with contact of the exiting left L4 nerve root. 3. L5-S1 circumferential disk bulge with moderate spinal canal stenosis. There is severe bilateral foraminal stenosis impinging the exiting bilateral L5 nerve roots. Further findings as detailed above. RPTAT: PP .Yordy Meneses MD, Date Time Electronically viewed and signed by .Yordy Meneses MD, on 03/26/2017 09:34 .F/
[2017-03-26] MEDS ORDERED: IBUP-1542 PO (10:17)
[2017-03-26] MEDS ORDERED: HYDR-906 PO (10:17)
--- NOTE | 2017-03-26 11:37 | ERD ---
ER Documentation Chief Complaint Date/Time DATE: 03/26/17 TIME: 11:23 Chief Complaint back pain x 2 weeks HPI This is a 68-year-old male presenting to the emergency department for right and left lower back pain 2 weeks. Patient states pain starts at right and left lower spine that radiates down both legs intermittently. No recent injury or fall. No dysuria, hematuria, urinary frequency or urinary urgency. No saddle anesthesia or new onset urinary or fecal incontinence. Patient was seen here 4 days ago with same symptoms and x-rays were performed. X-ray lumbar spine performed on 03/22/2017 showed degenerative changes, Atherosclerosis and No acute abnormality. Patient was given Graham at that time on the ED and states symptoms improved. Was instructed to follow-up with primary care provider. Patient presents today with similar pain. Patient did not follow-up with his primary care provider and has not been seen by orthopedic physician. Denies chest pain, headache, shortness of breath or difficulty breathing. No fevers or chills. ROS All systems reviewed and are negative except as per history of present illness. Medications Home Meds Active Scripts Ibuprofen* (Motrin*) 600 Mg Tab, 600 MG PO Q6, #15 TAB Prov:MONICA COON NP 03/26/17 Hydrocodone/Acetaminophen (Graham 5-325 Tablet) 1 Each Tablet, 1 TAB PO Q6H Y for PAIN, #7 TAB Prov:MONICA COON NP 03/26/17 Orphenadrine Citrate (Norflex) 100 Mg Tablet.sa, 100 MG PO BID for 5 Days, TAB.SA Prov:JENNIFER,NEREIDA C 03/22/17 Acetaminophen* (Tylenol*) 500 Mg Tab, 500 MG PO Q4H Y for MILD PAIN LEVEL 1-3 for 3 Days, TAB Prov:JENNIFERNEREIDA C 03/22/17 Hydrocodone/Acetaminophen (Graham 5-325 Tablet) 1 Each Tablet, 1 TAB PO Q6H Y for PAIN, #20 TAB Prov:SID MESSINA PA-C 12/25/16 Cyclobenzaprine Hcl* (Cyclobenzaprine Hcl*) 10 Mg Tablet, 10 MG PO TID, #15 TAB Prov:SID MESSINA PA-C 12/25/16 Isosorbide Mononitrate* (Isosorbide Mononitrate*) 30 Mg Tab.er.24h, 30 MG PO DAILY for 30 Days Prov:DARYL TRIVEDI HEAD BANQUET WAITER/WAITRESS 12/22/16 Amlodipine Besylate* (Amlodipine Besylate*) 5 Mg Tablet, 5 MG PO DAILY for 30 Days, TAB Prov:DARYL TRIVEDI HEAD BANQUET WAITER/WAITRESS 12/22/16 Reported Medications Gemfibrozil* (Gemfibrozil*) 600 Mg Tablet, 600 MG PO QPM, TAB 09/05/15 Ferrous Sulfate* (Ferrous Sulfate*) 325 Mg Tablet, 325 MG PO DAILY, TAB 09/05/15 Docusate Sodium* (Docusate Sodium*) 100 Mg Capsule, 100 MG PO DAILY, CAP 09/05/15 Levothyroxine Sodium* (Levothyroxine Sodium*) 75 Mcg Tablet, 75 MCG PO AC BREAKFAST, TAB 09/05/15 Carvedilol* (Coreg*) 6.25 Mg Tablet, 6.25 MG PO DAILY, TAB 09/05/15 Gabapentin* (Gabapentin*) 300 Mg Capsule, 300 MG PO BID, CAP 09/05/15 Aspirin* (Aspirin* EC) 81 Mg Tablet.dr, 81 MG PO DAILY, TAB 09/05/15 Allergies Allergies: Coded Allergies: No Known Allergy (Unverified , 03/22/17) PMhx/Soc Medical and Surgical Hx: pt denies Medical Hx, pt denies Surgical Hx History of Surgery: No Anesthesia Reaction: No Hx Neurological Disorder: No Hx Respiratory Disorders: No Hx Cardiac Disorders: Yes (htn,dm) Hx Psychiatric Problems: No Hx Miscellaneous Medical Probl: Yes (chronic back pain) Hx Alcohol Use: Yes Hx Substance Use: No Hx Tobacco Use: No Smoking Status: Never smoker Physical Exam Vitals Vital Signs Date Time Temp Pulse Resp B/P Pulse Ox O2 Delivery O2 Flow Rate FiO2 03/26/17 07:40 97.0 59 18 160/72 97 Physical Exam Const: Alert, no acute distress Head: Atraumatic Eyes: Normal Conjunctiva ENT: Normal External Ears, Nose and Mouth. Neck: Full range of motion..~ No meningismus. Resp: Clear to auscultation bilaterally. No wheezing, rhonchi or crackles. Cardio: Regular rate and rhythm, no murmurs Abd: Soft, non tender, non distended. Normal bowel sounds Skin: No petechiae or rashes Back: No midline or flank tenderness Ext: No cyanosis, or edema Neur: Awake and alert Psych: Normal Mood and Affect Results 24 hrs Current Medications Medications (Trade) Dose Ordered Sig/Jesús Route PRN Reason Start Time Stop Time Status Last Admin Dose Admin Acetaminophen/ Hydrocodone Bitart (Graham (5/325)) 1 tab ONCE ONCE PO 03/26/17 08:30 03/26/17 08:31 DC 03/26/17 08:32 Procedures/MDM Patient: SAGE JASSO : 1940 Age: 76 Sex: M MR #: [id number] DOS: 03/26/1721 Ordering MD: MONICA COON NP Location: [facility] Room/Bed: PROCEDURE: CT Lumbar Spine without contrast. CLINICAL INDICATION: Lower back pain. TECHNIQUE: Noncontrast CT of the lumbar spine was performed with multiplanar reformatted images generated from the axial acquired data. The administered radiation dose was CTDI vol = 34.18 mGy, DLP = 1058 mGy-cm. One or more of the following dose reduction techniques were used: Automated exposure control, Adjustment of the mA and/or kV according to patient size, or Use of iterative reconstruction technique. COMPARISON: Noncontrast CT of the lumbar spine from June 22, 2016. FINDINGS: There is normal lumbar lordosis. There is a chronic minimal T12 vertebral body compression fracture. Otherwise vertebral body heights are maintained. There is no acute fracture. There is normal alignment. There is no destructive osseous lesion. The discs are normal in height. There is vacuum disk phenomenon at L5-S1. T11-T12: There is a 2 mm broad-based disk osteophyte complex with dorsal disk calcification without spinal canal or bilateral foraminal stenosis. This level is unchanged. T12-L1 : There is a 2 mm broad-based disk osteophyte complex with moderate bilateral facet arthropathy and ligamentum flavum infolding without spinal canal stenosis. There is mild to moderate bilateral foraminal stenosis. This level is unchanged. L1-L2 : There is a 3 mm broad-based disk osteophyte complex and moderate bilateral facet arthropathy without spinal canal stenosis. There is mild to moderate right without left foraminal stenosis. This level is unchanged. L2-L3 : There is a 3 mm broad-based disk bulge and moderate bilateral facet arthropathy with mild spinal canal stenosis. There is mild to moderate right without left foraminal stenosis. This level is unchanged. L3-L4 : There is a 3 mm broad-based disk bulge with moderate bilateral facet arthropathy and ligamentum flavum infolding causing mild to moderate spinal canal stenosis. There is mild to moderate bilateral foraminal stenosis. This level is unchanged. L4-L5 : There is a 4 mm broad-based disk bulge with left dorsolateral disk calcifications with moderate bilateral facet arthropathy and ligamentum flavum infolding causing moderate to severe spinal canal stenosis. There is moderate left with mild right foraminal stenosis with contact of the exiting left L4 nerve root. This level is unchanged. L5-S1 : There is a 4 mm circumferential disk bulge with moderate bilateral facet arthropathy and ligamentum flavum infolding causing moderate spinal canal stenosis. There is severe bilateral foraminal stenosis impinging the exiting bilateral L5 nerve roots. This level is unchanged. The sacroiliac joints are intact. There are prominent bilateral bridging sacroiliac joint osteophytes. There is 1 cm exophytic right renal cyst. IMPRESSION: No significant change. 1. Chronic minimal T12 vertebral body compression fracture. No acute fracture. 2. L4-L5 broad-based disk bulge with moderate to severe spinal canal stenosis. There is moderate left foraminal stenosis with contact of the exiting left L4 nerve root. 3. L5-S1 circumferential disk bulge with moderate spinal canal stenosis. There is severe bilateral foraminal stenosis impinging the exiting bilateral L5 nerve roots. Further findings as detailed above. MDM: 76-year-old male presents the emergency department for right and left lower back pain 2 weeks. Previous x-rays were done of the lumbar spine that showed no acute abnormality, atherosclerosis and degenerative changes per radiology. No no new onset urinary or fecal incontinence. No saddle anesthesia. Dysuria, hematuria, urinary frequency or urinary urgency. CT lumbar spine reviewed by radiologist as chronic minimal T12 vertebral body compression fracture. No acute fracture. Consulted Dr. Lira regarding this patient who agrees that patient needs follow up with orthopedic physician. Patient was given Graham in the ER without any complications and pain has improved. No abdominal pain, nausea, vomiting, diarrhea or constipation. No urinary symptoms and therefore low suspicion for UTI or pyelonephritis. Low suspicion for cauda equina syndrome, acute fracture, acute dislocation, epidural abscess, malignancy and AAA rupture. Differential Diagnosis includes but is not limited to back strain, vertebral fracture, herniated disc, spinal stenosis and nephrolithiasis. Patient is appropriate for outpatient management will be given prescription for Graham and ibuprofen. Instructed patient to follow-up with orthopedic physician or primary care provider in the next 2-3 days for reassessment. resources provided. Return to ED for any high fever, chest pain, difficulty breathing, shortness breath, wheezing, vomiting, diarrhea, abdominal pain or any new or worsening symptoms. Patient verbalizes understanding. All questions answered at discharge. Departure Diagnosis: Primary Impression: Back pain Condition: Stable Patient Instructions: Back Pain (Acute Or Chronic), Back Pain W/ Sciatica Referrals: ANKIT TRUJILLO MD (PCP) [facility] Ur[facility] 7 a.m.- 11 p.m. Every Day of the Week NO APPOINTMENT OR AUTHORIZATION NEEDED COMMUNITY CLINIC () Usted se cagle hecho un examen mdico de control que le indica que no est en janna condicin que requiera tratamiento urgente en el Departamento de Emergencia. Un estudio ms profundo y el tratamiento de solomon condicin pueden esperar sin ningn riesgo hasta que usted sea atendida/o en el consultorio de solomon mdico o janna cl colin. Es responsabilidad suya arreglar janna joss para el seguimiento del keren. MANEJO DE CONDICIONES NO URGENTES EN EL FUTURO 1) Si usted tiene un mdico de atencin primaria: Usted debera llamar a solomon mdico de atencin primaria antes de venir al departamento de emergencia. Despus de las horas de consultorio, solomon doctor o solomon asociado/a est disponible por telfono. El mdico o enfermero de walter en el servicio telefnico puede asesorarle por obie medio para atender el problema, o keren contrario se puede programar janna joss. 2) Si usted no tiene un mdico de atencin primaria: Llame al mdico o clnica de referencia que aparece abajo farrukh las horas de consultorio para hacer janna joss para que le vean. CLINICAS: [facility] [phone] [facility] [place] [phone] [facility] [phone] [place] [address] [phone] [place] [address] [phone] [facility]. [phone] [facility]. [facility] () brian se cagle hecho un examen mdico de control que le indica que no est en janna condicin que requiera tratamiento urgente en el Departamento de Emergencia. Un estudio ms profundo y el tratamiento de solomon condicin pueden esperar sin ningn riesgo hasta que usted sea atendida/o en el consultorio de solomon mdico o janna cl colin. Es responsabilidad suya arreglar janna joss para el seguimiento del keren. MANEJO DE CONDICIONES NO URGENTES EN EL FUTURO 1) Si usted tiene un mdico de atencin primaria: Usted debera llamar a solomon mdico de atencin primaria antes de venir al departamento de emergencia. Despus de las horas de consultorio, solomon doctor o solomon asociado/a est disponible por telfono. El mdico o enfermero de walter en el servicio telefnico puede asesorarle por obie medio para atender el problema, o keren contrario se puede programar janna joss. 2) Si usted no tiene un mdico de atencin primaria: Llame al mdico o condado institucions de referencia que aparece abajo farrukh las horas de consultorio para hacer janna joss para que le vean. SI USTED NO PUEDE PAGAR PARA LANDON UN MEDICO puede ir a: [facility] [address] [place] [address] [facility] [address] [place] [address] [facility] [address] [place] [address] [facility] [address] [place] [address] Additional Instructions: Llame al doctor MAANA y lobo janna JOSS PARA DENTRO DE 2-3 COFFEY.Dgale a la secretaria que nosotros le instruimos hacer esta joss.Avise o llame si solomon condicin se empeora antes de la joss. Regresa aqui si peor o no mejor. Regresar a ED por fiebre pooja, dolor en el pecho, dificultad para respirar, respiracin entrecortada, sibilancias, vmitos, diarrea, dolor abdominal o cualquier sntoma nuevo o que empeora. MONICA COON NP March 26, 2017 11:37
== END 2017-03-26 10:36 | disposition home or self-care (01) ==
LOC: FTE 07:36
DX: M54.5 Low back pain (principal); I10 Essential (primary) hypertension; E11.9 Type 2 diabetes mellitus without complications; Z79.82 Long term (current) use of aspirin
CPT/HCPCS: 72131

== ENCOUNTER 2018-04-21 09:51 | Inpatient (IN) | END 2018-05-04 20:45 | disposition home or self-care (01) | DRG 673 ==

== ENCOUNTER 2018-07-30 07:33 | Day surgery (SDC) | END 2018-07-30 13:12 | disposition home or self-care (01) ==

== ENCOUNTER 2018-09-10 06:38 | Day surgery (SDC) | END 2018-09-10 11:09 | disposition home or self-care (01) ==

== ENCOUNTER 2018-10-01 05:27 | Day surgery (SDC) | END 2018-10-01 08:46 | disposition home or self-care (01) ==

== ENCOUNTER 2018-11-01 15:57 | Emergency (ER) | END 2018-11-01 16:37 | disposition home or self-care (01) ==

== ENCOUNTER 2018-12-31 06:19 | Day surgery (SDC) | payer OTHER ==
[2018-12-31] VITALS (8 sets, daily range): BP systolic 154–170; BP diastolic 62–77; PULSE 52–58; RESP 14–18; Ht 167.6 cm; Wt 86.0 kg
[~2018-12-31] VITALS: Ht 167.6 cm; Wt 86.0 kg
[~2018-12-31 06:19] MED LIST changes: -AMLO-145 PO; -ASPI-664 PO; +ASPI81TA52 PO; -CARV6.25 PO; +CARV6.2579 PO; -CYCL-319 PO; -DOCU-159 PO; +DOCU250C68 PO; -FERR-55 PO; -GABA300C16 PO; -GEMF600T60 PO; -HYDR-906 PO; -ISOS30TA5 PO; -LEVO75TA5 PO; +LEVO88TA42 PO; +NEPH PO; -ORPH100T PO; +PANT40TA4 PO; +ROSU20TA PO; -TYL500 PO
[2018-12-31] MEDS ORDERED: ALLO100T PO (07:02)
[2018-12-31] MEDS ORDERED: FOLI-49 PO (07:02)
[2018-12-31] MEDS ORDERED: DOCU-144 PO (07:02)
[2018-12-31] MEDS ORDERED: IODIXANOL LOCM 100 ML BTL ONE ×2 (07:36→07:54)
[2018-12-31] MEDS ORDERED: MIDAZOLAM 1 MG/ML 2 ML INJ ONE (07:36)
[2018-12-31] MEDS ORDERED: FENTAnyl 50 MCG/ML VIAL ONE (07:36)
[2018-12-31] MEDS ORDERED: LIDOCAINE 1% (MDV) 20 ML INJ ONE (07:37)
--- NOTE | 2018-12-31 08:21 | PDOCDIS ---
Discharge Instructions DIAGNOSIS Discharge Diagnosis ESRD CONDITION [id number] Patient Condition: Tebac7s Good HOME CARE INSTRUCTIONS: [id number] Special Diet: Sseby9w RENAL DIET ACTIVITY: [id number] Activity Restrictions: [id number] Rest between Activity Avoid heavy lifting Do not Drive Do not operate Machinery Do not operate Power Tool Avoid Heavy Housework FOLLOW UP/APPOINTMENTS Follow-up Plan FOLLOW UP IN 2 WEEKS SUSI HRENANDEZ MD Dec 31, 2018 08:21
[2018-12-31] MEDS ORDERED: HEPARIN 1000 UNITS/ML 10 ML INJ ONE (08:23)
--- NOTE | 2018-12-31 08:26 | SIPON ---
Date/Time of Note Date/Time of Note DATE: 12/31/18 TIME: 08:25 Operative Report Preoperative Diagnosis ESRD Postoperative Diagnosis SAME Operation/Procedure Performed LEFT ARM FISTULOGRAM BASILIC VEIN ANGIOPLASTY Surgeon see signature line embalmer assistant NONE Anesthesia: moderate sedation Estimated blood loss: minimal Transfusion Required none Specimen NONE Grafts/Implants none Complications none SUSI HERNANDEZ MD Dec 31, 2018 08:26
--- NOTE | 2018-12-31 08:33 | CONS ---
Assessment/Plan Assessment/Plan Hospital Course (Demo Recall) DATE OF ADMISSION: 12/31/2018 TYPE OF CONSULTATION: Vascular surgery consultation. Dear Doctors: This 77-year-old gentleman with history of ESRD on dialysis. The patient underwent left arm brachiobasilic fistula creation with transposition. Appears he had unsuccessful dialysis session reported clotting. Upon his previous fistula ultrasound surveillance was identified patient having areas of hyperplasia concerning for possible thrombosis he denies shortness of breath, chest pain, nausea, vomiting, fever or chills. PAST MEDICAL HISTORY: End-stage renal disease, diabetes, hypertension, morbidly obese with BMI of 36.5, coronary artery disease, dyslipidemia, anemia of chronic disease PAST SURGICAL HISTORY: Permacatheter, left arm brachiobasilic fistula creation with transposition, left arm fistulogram SOCIAL HISTORY: Denies current tobacco, alcohol or illicit drug use. FAMILY HISTORY: Positive for hypertension. ALLERGIES: NO KNOWN DRUG ALLERGIES. REVIEW OF SYSTEMS: A 14-point review performed and negative except what is mentioned in the HPI. PHYSICAL EXAMINATION: GENERAL: Alert and oriented x3, no apparent distress. HEENT: Normocephalic, atraumatic. Mucosa moist. NECK: Supple, no carotid bruit. PULMONARY: Clear to auscultation bilaterally, and some crackles. ABDOMEN: Soft, nontender, nondistended. Bowel sounds positive. Truncal obesity. EXTREMITIES: Right lower extremity: palpable femoral pulse, faint pedal pulse. Motor, sensory intact. Cap refill 2 to 3 seconds. Left lower extremity: palpable femoral pulse and pedal pulse. Motor, sensory intact. Cap refill 2 to 3 seconds. Left upper extremities, palpable brachial pulse. Motor, sensory intact. Cap refill 2 seconds. fistula with weak bruit and thrill ASSESSMENT AND PLAN: ESRD: We will plan to perform a fistulogram with possible intervention pending her findings. Hoping we can resolve the issue and he can return to dialysis later today Optimize vascular status (BP meds, diet, nutrition, exercise, sugar control, antiplatelets). Discussed findings, plan and management with the patient with a certified dresser tender and he understands. Thank you for allowing us to partake in the care of your patient. Please call with any questions. Consultation Date/Type/Reason Admit Date/Time Date/Time of Note DATE: 12/31/18 TIME: 08:27 Past Medical History Home Meds Active Scripts Pantoprazole* (Pantoprazole*) 40 Mg Tablet.dr, 40 MG PO DAILY@06, #30 2 Refills Prov:JEF OBRIEN 04/30/18 Reported Medications Folic Acid* (Folic Acid*) 1 Mg Tablet, 1 MG PO DAILY, TAB 12/31/18 Allopurinol* (Allopurinol*) 100 Mg Tablet, 100 MG PO DAILY, TAB 12/31/18 Docusate Sodium* (Colace*) 100 Mg Capsule, 100 MG PO DAILY, #30 CAP 12/31/18 Aspirin (Low Dose Aspirin) 81 Mg Tablet.dr, 81 MG PO DAILY, #30 TAB 09/10/18 Carvedilol* (Carvedilol*) 6.25 Mg Tablet, 6.25 MG PO BID, #60 TAB 07/30/18 Rosuvastatin Calcium* (Crestor*) 20 Mg Tablet, 20 MG PO QHS, #30 TAB 04/21/18 Levothyroxine Sodium* (Levoxyl*) 88 Mcg Tablet, 88 MCG PO BEFORE BREAKFAST, #30 TAB 04/21/18 Discontinued Reported Medications Multivit/Ca Carb/B Cmplx/Fa* (Roma-Valentin*) 1 Tab Tab, 1 TAB PO DAILY, TAB 07/30/18 Docusate Sodium* (Dok*) 250 Mg Capsule, 250 MG PO DAILY, #30 CAP 07/30/18 Allergies: Coded Allergies: No Known Allergy (Unverified , 12/31/18) Past Surgical History Past Surgical Hx: angioplasty, other Social History Smoking Status: Never smoker Exam/Review of Systems Exam Vitals Vital Signs Date Temp Pulse Resp B/P (MAP) Pulse Ox O2 O2 Flow FiO2 Time Delivery Rate 12/31/18 97.5 58 18 160/77 96 Room Air 07:03 (104) Results Result Diagram: 12/31/18 0654 Results 24hrs Laboratory Tests Test 12/31/18 06:54 Sodium Level 144 Potassium Level 5.5 H Chloride Level 104 Carbon Dioxide Level 30 Anion Gap 10 Blood Urea Nitrogen 63 H Creatinine 10.18 H Est Glomerular Filtrat Rate mL/min Glucose Level 82 Calcium Level 10.5 H SUSI HERNANDEZ MD Dec 31, 2018 08:33
--- NOTE | 2018-12-31 09:00 | OPR ---
DATE OF OPERATION: 12/31/2018 PREOPERATIVE DIAGNOSES: End-stage renal disease and malfunctioning left upper extremity fistula. POSTOPERATIVE DIAGNOSES: End-stage renal disease and malfunctioning left upper extremity fistula. ANESTHESIA: Local with moderate sedation. ESTIMATED BLOOD LOSS: Minimal. COMPLICATIONS: None. HEPARIN: 2000 units intravenously. CONTRAST: As recorded. ACCESS: Left upper extremity 6-Nauruan sheath. CLOSURE: Manual compression 3-0 nylon suture. SEDATION: Under physician supervision, moderate sedation was administered intravenously under contin uous monitoring by the interventional team and attending physician. Pulse oximeter, heart rate, bloo d pressures were continuously monitored by the interventional surgeon. The physician's spent time wa s 60 minutes of [id number] sedation time with the patient. INDICATIONS: This is an 78-year-old gentleman with a history of end-stage renal disease who had unde rwent left arm brachial basilic fistula creation and transposition. Patient has been on dialysis for some time. It appears that over his last few sessions, there was report of clotting during his dial ysis session. His last dialysis session was unsuccessful on Sunday and the patient required furthe r evaluation. The patient had underwent previous fistula surveillance ultrasound which identified pa tient having areas of new intimal hyperplasia concern for possible thrombosis. Therefore, suggestion for a fistulogram with intervention was recommended. The patient agreed to proceed understanding al l risks, benefits and alternatives. Risks including but not limited to bleeding, thrombosis, emboliz ation, myocardial infarction, , stroke, device malfunction, infection, nephrotoxicity, and possi ble limb loss. The patient has agreed to proceed. PROCEDURE: 1. Ultrasound-guided access of the left upper extremity fistula. 2. Left upper extremity fistulogram. 3. Basilic vein venoplasty using a 6 x 16 mm drug-coated balloon. DESCRIPTION OF PROCEDURE: The patient was brought into the angio suite and positioned in supine posi tion on arthroscopic table. Sedation was administered without any complications. Left upper extremi ty was then shaved, prepped and draped in the usual standard sterile fashion. Time out and appropria te site was marked and confirmed. Local anesthesia was infiltrated in the region of the left upper e xtremity fistula. The fistula was then cannulated with a micro access needle under ultrasound guidan ce and a guidewire was advanced into the basilic vein under fluoroscopic guidance. Images were recor ded. The needle was removed and a microcatheter was placed. A Bentson wire was then passed into the basilic vein under fluoroscopic guidance followed by a short microcatheter over the wire. At this p oint, the left upper extremity fistulogram was then performed, which identified the patient's fistula being patent; however, there was area of moderate to severe stenosis in the distal aspect of the bas ilic vein as it enters into the axillary vein. The upper incision was made to intervene. The patien t was given intravenous heparin 2000 units. After ample time, we went ahead and exchange a microcath eter to a 6-Nauruan sheath. The sheath was flushed with heparinized saline solution. At this point, we used our guiding catheter and our Bentson wire to cross the area of the lesion. Once that was don e, we went ahead and used a drug-coated balloon measuring 6 x 60 mm and went ahead and performed a ve noplasty in that segment. This gave a satisfactory result. The patient had brisk flow across the ar ea of the fistula with the stenosis and the patient tolerated the procedure well. At this point, all catheters and needles, wires were removed. Using a 3-0 nylon suture, the puncture site was secured. Manual compression was held. Hemostasis was achieved. The patient tolerated procedure well and wa s taken to the postanesthesia care unit in stable condition. All instruments, catheters, needles, wi res were correct x2. Dictated By: SUSI SALMERON/MARIAELENA Conf#: [id number] DID#: [id number] CC: SUSI HERNANDEZ MD;*EndCC*
== END 2018-12-31 09:40 | disposition home or self-care (01) ==
LOC: SDS 06:19
PROVIDERS: ATTEND Student in an Organized Health Care Education/Training Program
DX: T82.590A Other mechanical complication of surgically created arteriovenous fistula, initial encounter (principal); Y84.1 Kidney dialysis as the cause of abnormal reaction of the patient, or of later complication, without mention of misadventure at the time of the procedure; I12.0 Hypertensive chronic kidney disease with stage 5 chronic kidney disease or end stage renal disease; N18.6 End stage renal disease
CPT/HCPCS: 36902; 80048; C1887; C1894; J1644; J2250; J3010; Q9967

== ENCOUNTER 2019-05-16 07:55 | Emergency (ER) | payer OTHER ==
[~2019-05-16] VITALS: Ht 177.8 cm; Wt 84.5 kg
[~2019-05-16 07:55] MED LIST changes: +ALLO100T PO; +CRES20 PO; +DOCU-144 PO; -DOCU250C68 PO; +FOLI-49 PO; -NEPH PO; -ROSU20TA PO
[2019-05-16 08:08] VITALS: Ht 177.8 cm; Wt 84.5 kg
[2019-05-16] MEDS ORDERED: MECLIZINE 12.5 MG TAB PO ONE ×2 (09:30)
[2019-05-16] MEDS ORDERED: MECL12.574 PO (10:51)
--- NOTE | 2019-05-16 10:54 | ERD ---
ER Documentation Chief Complaint Chief Complaint c/o headache with dizziness , onset 0600 am , no neuro deficits HPI Very pleasant 78-year-old male who presents to the emergency room describing dizziness. He states that at 6 AM he woke up with room spinning sensation that was worse with head movement. Symptoms are improving currently. He denies any slurred speech or motor deficits or weakness. No significant headache fevers or chills. He is a dialysis patient with dialysis yesterday. Translation services were utilized during this patient's encounter Language: Maltese Source: In person ROS All systems reviewed and are negative except as per history of present illness. Medications Home Meds Active Scripts Meclizine Hcl* (Antivert*) 12.5 Mg Tab, 12.5 MG PO Q6H PRN for DIZZINESS, #20 TAB Prov:DAVID PALACIOS MD 05/16/19 Pantoprazole* (Pantoprazole*) 40 Mg Tablet., 40 MG PO DAILY@06, #30 2 Refills Prov:JEF OBRIEN 04/30/18 Reported Medications Folic Acid* (Folic Acid*) 1 Mg Tablet, 1 MG PO DAILY, TAB 12/31/18 Allopurinol* (Allopurinol*) 100 Mg Tablet, 100 MG PO DAILY, TAB 12/31/18 Docusate Sodium* (Colace*) 100 Mg Capsule, 100 MG PO DAILY, #30 CAP 12/31/18 Aspirin (Low Dose Aspirin) 81 Mg Tablet., 81 MG PO DAILY, #30 TAB 09/10/18 Carvedilol* (Carvedilol*) 6.25 Mg Tablet, 6.25 MG PO BID, #60 TAB 07/30/18 Rosuvastatin Calcium* (Crestor*) 20 Mg Tablet, 20 MG PO QHS, #30 TAB 04/21/18 Levothyroxine Sodium* (Levoxyl*) 88 Mcg Tablet, 88 MCG PO BEFORE BREAKFAST, #30 TAB 04/21/18 Allergies Allergies: Coded Allergies: No Known Allergy (Unverified , 05/16/19) PMhx/Soc History of Surgery: Yes (L arm AV fistula creation ) Anesthesia Reaction: No Hx Neurological Disorder: No Hx Respiratory Disorders: No Hx Cardiac Disorders: Yes (HTN, Cholesterol) Hx Psychiatric Problems: No Hx Miscellaneous Medical Probl: No Hx Alcohol Use: No Hx Substance Use: No Hx Tobacco Use: No Smoking Status: Never smoker FmHx Family History: No diabetes Physical Exam Vitals Vital Signs Date Temp Pulse Resp B/P (MAP) Pulse Ox O2 O2 Flow FiO2 Time Delivery Rate 05/16/19 98.1 57 16 117/66 96 Room Air 08:47 (83) 05/16/19 98.2 61 18 97/59 (72) 95 08:08 Physical Exam General: Well developed, well nourished, no acute distress Head: Normocephalic, atraumatic. Eyes: Pupils equally reactive, EOM intact ENT: Moist mucous membranes Neck: Supple, no lymphadenopathy Respiratory: Lungs clear bilaterally, no distress Cardiovascular: RRR, no murmurs, rubs, or gallops Abdominal: Soft, non-tender, non-distended, no peritoneal signs : Deferred MSK: No edema, no unilateral swelling, 5/5 strength Neurologic: Alert and oriented, moving all extremities, normal speech, no focal weakness, no cerebellar , slightly reproducible horizontal nystagmus without vertical nystagmus.signs normal rapid alternating movements. Skin: No rash Psych: Normal mood Result Diagram: 05/16/19 0911 05/16/19 0911 Results 24 hrs Laboratory Tests Test 05/16/19 09:11 White Blood Count 4.4 10^3/ul Red Blood Count 4.86 10^6/ul Hemoglobin 13.8 g/dl Hematocrit 43.4 % Mean Corpuscular Volume 89.3 fl Mean Corpuscular Hemoglobin 28.4 pg Mean Corpuscular Hemoglobin Concent 31.8 g/dl Red Cell Distribution Width 14.2 % Platelet Count 72 10^3/UL Mean Platelet Volume 11.8 fl Immature Granulocytes % 0.200 % Neutrophils % 57.2 % Lymphocytes % 29.5 % Monocytes % 11.8 % Eosinophils % 1.1 % Basophils % 0.2 % Nucleated Red Blood Cells % 0.0 /100WBC Immature Granulocytes # 0.010 10^3/ul Neutrophils # 2.5 10^3/ul Lymphocytes # 1.3 10^3/ul Monocytes # 0.5 10^3/ul Eosinophils # 0.1 10^3/ul Basophils # 0.0 10^3/ul Nucleated Red Blood Cells # 0.0 10^3/ul Prothrombin Time 12.8 Sec Prothrombin Time Ratio 1.0 INR International Normalized Ratio 0.95 Activated Partial Thromboplast Time 30.3 Sec Sodium Level 143 mmol/L Potassium Level 4.9 mmol/L Chloride Level 94 mmol/L Carbon Dioxide Level 35 mmol/L Anion Gap 14 Blood Urea Nitrogen 41 mg/dl Creatinine 8.97 mg/dl Est Glomerular Filtrat Rate mL/min mL/min Glucose Level 94 mg/dl Calcium Level 9.6 mg/dl Current Medications Medications Dose Sig/Jesús Start Time Status Last (Trade) Ordered Route PRN Stop Time Admin Dose Reason Admin Meclizine 25 mg ONCE ONCE 05/16/19 DC HCl PO 09:30 05/16/19 (Antivert) 09:30 Meclizine 12.5 mg ONCE ONCE 05/16/19 DC 05/16/19 HCl PO 09:30 05/16/19 09:40 (Antivert) 09:31 Procedures/MDM EKG, MONITORS, & DIAGNOSTIC IMAGING: EKG: I reviewed and interpreted a 12-lead EKG. Rhythm: Normal sinus rhythm ST Changes: No contiguous ST segment elevations T waves: No contiguous T wave inversions Impression: No evidence of acute cardiac ischemia CT brain: No acute process per radiologist read LAB INTERPRETATION: No hyperkalemia, end-stage renal disease MEDICAL DECISION MAKING: Patient was signs and symptoms very consistent with peripheral vertigo. He has a nonfocal neurologic exam without signs concerning for central vertigo. Patient will benefit from meclizine. He needs laboratory testing to rule out hyperkalemia or complications related to end-stage renal disease but low concern for this. No evidence of volume overload. ER COURSE: * Patient was treated with meclizine with dramatic and complete resolution. Laboratory testing and diagnostic imaging is unrevealing. * The patient can be safely discharged home with close primary care follow-up. I kept the patient and/or family informed of laboratory and diagnostic imaging results throughout the emergency room course. DISPOSITION PLAN: The patient does not have an identifiable emergent medical condition that warrants inpatient hospitalization at this time. The patient is deemed safe for discharge with outpatient follow-up. We discussed follow up with the patient's primary care doctor within 24 to 48 hours as needed. We also discussed return to the emergency room for worsening symptoms or worsening condition. Outpatient referral: None required Discharge Medications: Meclizine Departure Diagnosis: Primary Impression: Peripheral vertigo Laterality: unspecified laterality Qualified Codes: H81.399 - Other peripheral vertigo, unspecified ear Additional Impressions: Pancytopenia End stage renal disease on dialysis Condition: Stable Patient Instructions: Vertigo, Unspecified Additional Instructions: Llame al doctor nombrado anoop (Referral Sources) MAANA y lobo bjorn JOSS PARA DENTRO DE BJORN SEMANA. Dgale a la secretaria que nosotros le instruimos hacer esta joss.Avise o llame si solomon condicin se empeora antes de la joss. DAVID PALACIOS MD May 16, 2019 10:54
[2019-05-16 11:48] VITALS: BP 123/68; PULSE 62; RESP 18
== END 2019-05-16 11:50 | disposition home or self-care (01) ==
LOC: E/R 07:55
DX: H81.399 Other peripheral vertigo, unspecified ear (principal); D61.818 Other pancytopenia; I12.0 Hypertensive chronic kidney disease with stage 5 chronic kidney disease or end stage renal disease; N18.6 End stage renal disease; Z79.82 Long term (current) use of aspirin; Z99.2 Dependence on renal dialysis
CPT/HCPCS: 36415; 70450; 80048; 85025; 85610; 85730; 93005

== ENCOUNTER 2019-05-24 06:23 | Emergency (ER) | payer OTHER ==
[~2019-05-24] VITALS: Wt 80.0 kg
[~2019-05-24 06:23] MED LIST changes: +MECL12.574 PO
[2019-05-24] MEDS ORDERED: ONDANSETRON 4 MG INJ IV STA (09:24)
[2019-05-24] MEDS ORDERED: SOD CHLORIDE 0.9% 1,000 ML IV STA (09:24)
[2019-05-24] MEDS ORDERED: ONDANSETRON (ODT) 4 MG TAB ODT STA (09:30)
[2019-05-24] MEDS ORDERED: DIAZEPAM 5 MG TAB PO ONE (09:30)
--- NOTE | 2019-05-24 10:24 | ERD ---
ER Documentation Chief Complaint Chief Complaint sudden onset headache and dizziness with no trauma or neuro deficit. no cp HPI This is an 78-year-old male with a history of end-stage renal disease on hemodialysis. The patient has a left upper extremity fistula. The patient receives hemodialysis every Sunday and Sunday. He is scheduled for dialysis today at 11 AM. The patient states for the past 8 days he has been experiencing intermittent dizziness where he feels as though the room is spinning around him. He states he was diagnosed recently with vertigo as he had been seen and evaluated on May 16, 2019 at [facility] A CT scan of his head which was normal. The patient states that he is experiencing a bandlike headache. This is not the worst headache of his life. This headache is been present since the initial visit on May 16, 2019. He denies any blunt or penetrating head trauma. No fevers or shaking or chills. No rashes. No chest pain. No shortness of breath. No recent travel. The patient indicated he had been prescribed Antivert. He indicates this improves his symptoms but after the Antivert wears off he will have recurrence of the vertigo. He denies any tinnitus or changes in hearing. ROS All systems reviewed and are negative except as per history of present illness. Medications Home Meds Active Scripts Diazepam* (Valium*) 5 Mg Tablet, 5 MG PO Q8 PRN for VERTIGO, #10 TAB Prov:BEE BARR MD 05/24/19 Meclizine Hcl* (Antivert*) 12.5 Mg Tab, 12.5 MG PO Q6H PRN for DIZZINESS, #20 TAB Prov:DAVID PALACIOS MD 05/16/19 Pantoprazole* (Pantoprazole*) 40 Mg Tablet., 40 MG PO DAILY@06, #30 2 Refills Prov:JEF OBRIEN 04/30/18 Reported Medications Folic Acid* (Folic Acid*) 1 Mg Tablet, 1 MG PO DAILY, TAB 12/31/18 Allopurinol* (Allopurinol*) 100 Mg Tablet, 100 MG PO DAILY, TAB 12/31/18 Docusate Sodium* (Colace*) 100 Mg Capsule, 100 MG PO DAILY, #30 CAP 12/31/18 Aspirin (Low Dose Aspirin) 81 Mg Tablet., 81 MG PO DAILY, #30 TAB 09/10/18 Carvedilol* (Carvedilol*) 6.25 Mg Tablet, 6.25 MG PO BID, #60 TAB 07/30/18 Rosuvastatin Calcium* (Crestor*) 20 Mg Tablet, 20 MG PO QHS, #30 TAB 04/21/18 Levothyroxine Sodium* (Levoxyl*) 88 Mcg Tablet, 88 MCG PO BEFORE BREAKFAST, #30 TAB 04/21/18 Allergies Allergies: Coded Allergies: No Known Allergy (Unverified , 05/16/19) PMhx/Soc History of Surgery: Yes (L arm AV fistula creation ) Anesthesia Reaction: No Hx Neurological Disorder: No Hx Respiratory Disorders: No Hx Cardiac Disorders: Yes (HTN, Cholesterol) Hx Psychiatric Problems: No Hx Miscellaneous Medical Probl: No Hx Alcohol Use: No Hx Substance Use: No Hx Tobacco Use: No Smoking Status: Never smoker Physical Exam Vitals Vital Signs Date Temp Pulse Resp B/P (MAP) Pulse Ox O2 O2 Flow FiO2 Time Delivery Rate 05/24/19 96.9 60 18 137/62 99 06:32 (87) Physical Exam Constitutional:Well-developed. Well-nourished. HEENT:Normocephalic. Atraumatic.Pupils were equal round reactive to light. Moist mucous membranes.No tonsillar exudates. Neck: No nuchal rigidity. No lymphadenopathy. No posterior cervical spine tenderness or step-offs. Respiratory: Not using accessory muscles of respiration.Lungs were clear to auscultation bilaterally. No rhonchi. No rales. No wheezing. Cardiovascular: Regular rate regular rhythm.No murmurs. No rubs were appreciated.S1, S2 normal. Distal pulses are palpable 2+ bilaterally. GI: Abdomen was soft. Nontender. Non Distended. No pulsatile abdominal masses or bruits. No rebound. No guarding. Bowel sounds were present and normal. Muscle skeletal: Full range of motion of both the upper and lower extremities bilaterally.Normal muscle tone.No assymetrical calf tenderness or swelling. Skin: No petechia, no purpura. No lesions on the palms or the soles of the feet. No maculopapular rash. Positive thrill and bruit of the left upper extremity AV fistula NEURO: Patient was alert, awake, orientated x3.No facial droop. Gait observed and normal with no ataxia.Speech had regular rate and rhythm. No focal neurological deficits. Peripheral fatigable nystagmus Result Diagram: 05/24/19 0941 05/24/19 0941 Results 24 hrs Laboratory Tests Test 05/24/19 09:41 White Blood Count 4.8 10^3/ul Red Blood Count 4.82 10^6/ul Hemoglobin 13.6 g/dl Hematocrit 43.6 % Mean Corpuscular Volume 90.5 fl Mean Corpuscular Hemoglobin 28.2 pg Mean Corpuscular Hemoglobin Concent 31.2 g/dl Red Cell Distribution Width 14.6 % Platelet Count 65 10^3/UL Mean Platelet Volume 11.2 fl Immature Granulocytes % 0.600 % Neutrophils % 54.9 % Lymphocytes % 33.7 % Monocytes % 9.1 % Eosinophils % 1.3 % Basophils % 0.4 % Nucleated Red Blood Cells % 0.0 /100WBC Immature Granulocytes # 0.030 10^3/ul Neutrophils # 2.6 10^3/ul Lymphocytes # 1.6 10^3/ul Monocytes # 0.4 10^3/ul Eosinophils # 0.1 10^3/ul Basophils # 0.0 10^3/ul Nucleated Red Blood Cells # 0.0 10^3/ul Prothrombin Time 13.5 Sec Prothrombin Time Ratio 1.1 INR International Normalized Ratio 1.02 Activated Partial Thromboplast Time 25.6 Sec Sodium Level 143 mmol/L Potassium Level 5.8 mmol/L Chloride Level 99 mmol/L Carbon Dioxide Level 35 mmol/L Anion Gap 9 Blood Urea Nitrogen 51 mg/dl Creatinine 10.47 mg/dl Est Glomerular Filtrat Rate mL/min mL/min Glucose Level 81 mg/dl Calcium Level 9.5 mg/dl Total Bilirubin 0.4 mg/dl Direct Bilirubin 0.00 mg/dl Indirect Bilirubin 0.4 mg/dl Aspartate Amino Transf (AST/SGOT) 22 IU/L Alanine Aminotransferase (ALT/SGPT) 24 IU/L Alkaline Phosphatase 105 IU/L Troponin I 0.018 ng/ml Total Protein 7.8 g/dl Albumin 4.4 g/dl Globulin 3.40 g/dl Albumin/Globulin Ratio 1.29 Current Medications Medications Dose Sig/Jesús Start Time Status Last (Trade) Ordered Route PRN Stop Time Admin Dose Reason Admin Sodium 1,000 ml @ Q1H STAT 05/24/19 Cancel Chloride 1,000 mls/hr IV 09:24 05/24/19 10:23 Ondansetron 4 mg ONCE STAT 05/24/19 Cancel HCl (Zofran IV 09:24 Inj) 05/24/19 09:25 Ondansetron 4 mg ONCE STAT 05/24/19 DC HCl (Zofran ODT 09:30 Odt) 05/24/19 09:31 Diazepam 5 mg ONCE ONCE 05/24/19 DC (Valium) PO 09:30 05/24/19 09:31 Procedures/MDM This patient was seen and evaluated by myself. The patient presented to the emergency department complaining of dizziness. My differential diagnosis included but was not limited to hypovolemia, myocardial infarction, pulmonary embolism, hypoglycemia, hypoxia, anemia, vasovagal episode, hypothyroidism, anxiety, peripheral or central vertigo. The patient was placed on a environmental monitoring technician and no ectopy was seen on the monitor. The patient has a history of end-stage renal disease and is scheduled to get dialysis today in 1 hour. I obtained ancillary laboratory work and there was mild hyperkalemia. 12 Lead EKG tracing ordered and reviewed by myself showed: Normal sinus rhythm of 61 bpm and no arrhythmia. AK interval normal. QRS duration normal. No peak T waves No ST segment elevation. Q waves present in the inferior leads III and aVF. No ST segment depression. No changes consistent with acute ischemia. I reviewed the patient's previous CT scan of her head taken on May 16, 2019. There is no signs of intracerebral hemorrhage mass-effect or midline shift. The patient's visible exam findings appear to be a result of peripheral vertigo. I did feel the headache was more like a result of a tension headache and no signs of subarachnoid hemorrhage or other acute life-threatening etiology for cephalgia. He was also given a further prescription of Valium to take if needed for severe vertigo but I did indicate that the patient would benefit from further outpatient follow-up with his primary care physician and neurologist. The patient was able to be discharged from the emergency department to go directly to his dialysis and had been treated with Kayexalate in the emergency department for an elevated potassium of 5.8. The patient's BUN was 51 and creatinine was 10.47. There is no peak T waves seen on the EKG. He does have dialysis scheduled in the next 30 minutes and as stated above is good to go directly to his dialysis. The patient was discharged home in fair condition. They were instructed to return to the emergency department at any time if there was any worsening of their condition. The patient stated they would follow up with their PCP in the next 24-48 hours to initiate a suitable medication regimen under the care of their PCP as well as to allow their PCP to monitor any drug reactions. The patient was discharged home with prescriptions after they gave informed consent to the new medication. They were also fully informed by myself on the adverse effects and adverse drug interactions in order to provide adequate safeguards to prevent possible adverse reactions to medications. Departure Diagnosis: Primary Impression: Vertigo Additional Impression: Tension headache Condition: BEE Smith MD May 24, 2019 10:24
[2019-05-24] MEDS ORDERED: DIAZ5TAB PO (10:25)
[2019-05-24] MEDS ORDERED: NA POLYST SULFON 15 GM/60 ML BTL PO STA (10:31)
[2019-05-24 10:39] VITALS: BP 159/67; PULSE 89; RESP 20
== END 2019-05-24 10:40 | disposition home or self-care (01) ==
LOC: E/R 06:23
DX: G44.209 Tension-type headache, unspecified, not intractable (principal); R42 Dizziness and giddiness; I12.0 Hypertensive chronic kidney disease with stage 5 chronic kidney disease or end stage renal disease; N18.6 End stage renal disease; R40.2142 Coma scale, eyes open, spontaneous, at arrival to emergency department; R40.2252 Coma scale, best verbal response, oriented, at arrival to emergency department; R40.2362 Coma scale, best motor response, obeys commands, at arrival to emergency department; Z99.2 Dependence on renal dialysis; Z79.82 Long term (current) use of aspirin
CPT/HCPCS: 80053; 84484; 85025; 85610; 85730; 93005; J7030